=== PATIENT | female | born 1990 | race Caucasian/White ===

== ENCOUNTER 2023-08-07 08:24 | Emergency (ER) | payer MEDICAID, SELFPAY ==
--- NOTE | ~2023-08-07 | XR_ITS ---
EXAMINATION: XR KNEE, RIGHT CLINICAL INFORMATION: Knee pain COMPARISON: None available. TECHNIQUE: Four views of the right knee. FINDINGS: No fracture, dislocation or destructive lesion or joint effusion. XR/XR knee RT 4V IMPRESSION: Unremarkable study.
[2023-08-07 08:32] VITALS: BP 110/68; RESP 18; TEMP 36.7; O2SAT 98; BMI 22.8
--- NOTE | 2023-08-07 08:35 | ED_ITS ---
HPI - General Adult General Chief complaint: Extremity Injury, Lower Stated complaint: Right knee pain Time Seen by Provider: 08/07/23 08:34 Source: patient Mode of arrival: ambulatory Limitations: no limitations History of Present Illness HPI narrative: Patient is a 33 year old assigned female at with no reported medical history presenting to the emergency department today with right knee pain. Patient states that the other day she stepped out of her work van and felt / heard a pop in the right knee. Patient denies any head strike or loss of consciousness, dizziness, lightheadedness, abdominal pain, nausea, vomiting, fever, chills, blurry vision, double vision, loss of vision, chest pain, difficulty breathing, shortness of breath, back pain, night sweats, pain with urination, increased urinary frequency, increased urinary urgency, blood in her urine or stool, syncope or a near syncopal episode, recent trauma or falls, bowel incontinence, bladder incontinence, bowel retention, bladder retention, or any other complaints at this time. Onset (ago): day(s) Location: right and lower extremity Radiation: non-radiation Severity: mild Severity scale (1-10): 3 Quality: aching and dull Pain Consistency: constant Relieving factors: none Exacerbating factors: none Associated symptoms: denies other symptoms Treatments prior to arrival: none Related Data Allergies Allergy/AdvReac Type Severity Reaction Status Date / Time Sulfa (Sulfonamide Allergy Difficulty Verified 08/07/23 08:38 Antibiotics) Breathing Review of Systems Constitutional: Constitutional: Reports no additional constitutional complaints, Denies chills, Denies fever(s) and Denies night sweats Eyes: Eyes: Reports no additional eye complaints, Denies blurry vision, Denies change in vision, Denies diplopia, Denies eye discharge, Denies loss of vision and Denies eye pain ENT: Denies dizziness Cardiovascular: Cardiovascular: Reports no additional cardiovascular complaints, Denies chest pain, Denies lightheadedness, Denies Loss of Consciousness and Denies dyspnea Respiratory: Respiratory: Reports no additional respiratory complaints and Denies dyspnea Gastrointestinal: Gastrointestinal: Reports no additional gastrointestinal complaints, Denies abdominal pain, Denies melena, Denies hematochezia, Denies change in bowel habits and Denies change in stool character Genitourinary: Genitourinary: Denies hematuria, Denies urinary frequency, Denies dysuria, Denies urinary incontinence, Denies urinary hesitancy and Denies urinary urgency Musculoskeletal: Musculoskeletal: Reports no additional musculoskeletal complaints, Denies numbness and Denies tingling Comments: right knee pain Neurologic: Denies dizziness, Denies loss of vision, Denies numbness and Denie s tingling Psychiatric: Psychiatric: Reports no additional psychiatric complaints Endocrine: Endocrine: Reports no additional endocrine complaints Hematologic/Lymphatic: Hematologic/Lymphatic: Reports no additional hematologic/lymphatic complaints Allergic/Immunologic: Allergic/Immunologic: Reports no additional allergic/immunologic complaints [facility] Past Medical History Attestation statement: The following information was validated with the patient. Source: old records reviewed and nursing notes reviewed Social History Social History Advance Directives: No Advance Directives Information Provided: No Physical Exam ED Vital Signs: Vital Signs - 24 hr 08/07/23 08:32 Temperature 98.1 F Respiratory Rate 18 Blood Pressure 110/68 Pulse Oximetry 98 Oxygen Delivery Method Room Air BMI result Body Mass Index 22.8 Const General: cooperative, no acute distress, alert and awake Nutritional Appearance: well nourished Orientation/consciousness: patient oriented x3 Limitations: no limitations HENMT Head: Yes normal to inspection and Yes atraumatic Ears: hearing grossly normal bilaterally and external ears normal General nose exam: Normal external nose present, no nasal discharge noted and no epistaxis Face and sinus: Yes normal facial exam, No abrasion and No laceration Mouth: Normal oral and palatal mucosa present, no drooling and no muffled voice Eyes General: appearance normal, both eyes and all related structures Periorbital: periorbital findings normal Eyelids: Yes eyelids normal Conjunctivae: conjunctivae normal Pupils: Equal, round and reactive pupils present EOM: EOMs intact bilaterally Neck Neck: Yes normal visual inspection, Yes full ROM and Yes no lymphadenopathy Chest Chest palpation & inspection: normal inspection of the chest Resp Effort & Inspection: normal respiratory effort and able to speak in complete sentences GI Inspection: Yes normal to inspection Neuro General: patient oriented x3 and moves all extremities Cranial nerves: Yes Equal, round and reactive pupils present Cognition (Neuro): normal cognition Motor exam (neuro): 5/5 motor strength present throughout Sensory Exam: Normal double simultaneous stimulation for sensation Coordination: oojifm-mt-crvw test normal Extrem General: Yes normal to inspection, Yes full ROM and Yes capillary refill normal Psych Appearance: grossly normal Mental Status: mental status grossly normal Affect: normal affect Attitude: cooperative Thought process: Normal thought process present Thought content: Normal thought content present Insight: Good insight present (Psych) Procedures Orthopedic Splinting/Casting Injury #1: Side: right Lower Extremity Immobilizer: knee immobilizer Other Orthopedic Equipment: crutches Medical Decision Making Medical Decision Making MDM Narrative: Patient is a 33 year old assigned female at with no reported medical history presenting to the emergency department today with right knee pain. Patient's physical exam was unremarkable. Patient's right knee x-ray showed no acute process. I explained my physical exam findings as well as all test results to the patient. I answered all questions asked by the patient. Patient's right knee was placed in a knee immobilizer and given crutches with crutch instructions. Patient's PMS was intact prior to and after immobilizer placement. I stressed the importance of the patient taking her medication as prescribed. I stressed the importance of the patient following up with her primary care provider. I stressed the importance of the patient returning to the emergency department immediately if her symptoms were to worsen or if she were to develop any dizziness, shortness of breath, difficulty breathing, chest pain, blurry vision, loss of vision, nausea, vomiting, abdominal pain, fever, chills, back pain, or any other complaints. Patient verbalized agreement and understanding with this treatment plan and discharge. Differential Diagnosis Differential Diagnoses: The differential diagnosis associated with the presentation includes Right knee sprain Right knee pain Right knee injury Independent Interpretation I performed an independent interpretation of an: Plain X-Ray Interpretation: My interpretation is in agreement with the radiologist's impression of this imaging study. EXAMINATION: XR KNEE, RIGHT CLINICAL INFORMATION: Knee pain COMPARISON: None available. TECHNIQUE: Four views of the right knee. FINDINGS: No fracture, dislocation or destructive lesion or joint effusion. XR/XR knee RT 4V IMPRESSION: Unremarkable study. Dictated By: Ryan Pascual MD Signed By: Electronically signed by Ryan Pascual MD 08/07/23 1008 Radiology Impression Discussion of test interpretation with radiology: I have reviewed the radiologist's reading. Discharge Plan Discharge Clinical Impression: Knee sprain Patient Disposition: Home, Self-Care Instructions: Knee Sprain (DC), Crutch Instructions (ED) Additional Instructions: Given this was a work place injury, you should follow up with [facility]. Follow up with your primary care provider and an orthopedic provider. Return to the emergency department immediately if your symptoms worsen or if you develop any dizziness, shortness of breath, difficulty breathing, chest pain, blurry vision, loss of vision, nausea, vomiting, abdominal pain, fever, chills, back pain, or any other complaints. Referrals: [facility] [Provider Group] (Call to establish and follow up with an orthopedic provider.) [facility] [Provider Group] (Given this was a work place injury, you should follow up with [facility].) Lidia Barlow MD [Primary Care Provider] - Stand Alone Forms: Work/School Release Interventions: ED Discharge Assessment Last Done: 08/07/23 10:22 Discharge Date/Time: 08/07/23 10:57 Print Language: Occitan
--- NOTE | 2023-08-07 08:43 | PC.NURSE ---
Patient reports works for [employer] and two days ago jumped out of work vehicle and heard a pop in her right knee. Patient reports she continued to work and then worked yesterday. Reports pain has gotten worse, is able to bear weight but is having difficulty bending leg and going upstairs is painful. Reports swelling was worse 2 days ago
--- NOTE | 2023-08-07 10:27 | PC.NURSE ---
Discharge plan reviewed with patient who verbalized understanding, patient declining crutches, only wanted immobilizer placed.
== END 2023-08-07 10:57 | disposition home or self-care (01) ==
PROVIDERS: Emergency Provider Emergency Medicine Emergency Medical Services; PCP Family Medicine
DX: S83.91XA Sprain of unspecified site of right knee, initial encounter (principal); M25.561 Pain in right knee; X58.XXXA Exposure to other specified factors, initial encounter; Y93.9 Activity, unspecified; Y92.9 Unspecified place or not applicable; Y99.0 Civilian activity done for income or pay
CPT/HCPCS: 29505; 73564; 99283; 99284

== ENCOUNTER 2023-08-30 11:01 | Outpatient (AMB) | payer MEDICAID, SELFPAY ==
--- NOTE | 2023-08-30 11:09 | A.OFFVIS_ITS ---
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 Patient reports that she stepped out of her work van and felt/heard a pop. She presented to [facility] ED on 08/07/23 where xrays were taken and placed in a knee immobilizer. soreness and cramping limited ROM lockign straight. Currently she feels a pulling sensation in her leg and intermittent swelling. Finds some relief with edward wrap and icy hot. intermitted swelling. She takes Tylenol with little relief, states unable to take ibuprofen due to making her sick. Hx of left knee pain due to a previous injury. Allergies Sulfa (Sulfonamide Antibiotics) Allergy (Verified 08/07/23 08:38) Difficulty Breathing sulfamethoxazole [From Bactrim] Allergy (Verified 08/30/23 11:13) Anaphylaxis trimethoprim [From Bactrim] Allergy (Verified 08/30/23 11:13) Anaphylaxis Medication List - Last Reconciled 08/30/23 by MIAH Cabral norgest/e.estradiol-e.estrad 0.15 mg-30 mcg (84)/10 mcg (7) (Simpesse) PO HPI Clinical Program Coordinator- right Knee sprain HPI Details 33-year-old female who presents to the o ice today for evaluation of right knee injury s/p stepping out of work van when she heard a pop in her knee, 08/05/23. She was seen at ED 2 days later where x-rays were performed and she was placed in a knee immobilizer. She states she has pain, soreness, cramping, limited ROM and intermittent swelling in her knee. She also c/o a pulling sensation in her leg and reports her knee constantly pops. Her knee bends inward with ambulation. She finds mild relief with edward wrap, icy hot and Tylenol. She is unable to take Tylenol as experiences she sick due to it. 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 Review of Systems Const All systems reviewed & are unremarkable except as noted in HPI and below Physical Exam Vital Signs: BMI result Body Mass Index 22.8 Const General: cooperative, healthy appearing, comfortable, no acute distress, well developed and alert Orientation/consciousness: patient oriented x3 HEENT Head: Yes normal to inspection, Yes normocephalic and Yes atraumatic Eyes General: appearance normal, both eyes and all related structures Resp Effort & Inspection: normal respiratory effort and able to speak in complete sentences Cardio Rate: regular rate Peripheral pulses: Peripheral pulses 2+ throughout GI Palpation (GI): Soft to palpation Skin Lesions: no lesions Rashes: no rashes Neuro General: patient oriented x3 Extrem Other: Right knee: Skin intact, no erythema or joint effusion. Tenderness along the medial and lateral joint line. Full ROM with crepitus. Positive Jermaine?s. No ligamentous laxity. NVI. Results Reviewed Results Reviewed: xrays of the right knee obtained in the ED are negative for acute fracture or dislocation Assessment & Plan Assessment & Plan (1) Internal derangement of right knee: Code(s): M23.91 - Unspecified internal derangement of right knee Plan She was fit for a Genumed knee brace in the office today. An MRI of her right knee has also been ordered to further evaluate the integrity of meniscus. She will see me back once the scan is complete. Orders: Orders MR knee RT wo con Today M23.91 - Unspecified internal derangement of right knee Patient Instructions: Scribed for Kristian Angela PA-C, by Yvon Dodd medical office professional instructor, on 08/30/2023 at 11:00 AM EST. I, Kristian Angela PA-C, have personally reviewed and agree with the information entered by the scribe. Coding Level of Care Code New Pt Level 3 (27004) Diagnoses Internal derangement of right knee M23.91
[2023-08-30 11:14] VITALS: BMI 22.8
== END 2023-08-30 11:31 | disposition home or self-care (01) ==
PROVIDERS: PCP Family Medicine; Visit Provider Physician Assistant
DX: M23.91 Unspecified internal derangement of right knee (principal); Y99.0 Civilian activity done for income or pay; Z04.2 Encounter for examination and observation following work accident
CPT/HCPCS: 99203

== ENCOUNTER → 2023-08-30 11:01 | Outpatient (BNVA) | payer MEDICAID, SELFPAY | PROVIDERS: PCP Family Medicine; Visit Provider Physician Assistant | DX: M23.91 Unspecified internal derangement of right knee (principal) | CPT/HCPCS: 99202 ==

== ENCOUNTER 2023-09-13 15:40 | Outpatient (REF) | payer MEDICAID, SELFPAY ==
[2023-09-13 18:51] LABS: Influenza A PCR NEGATIVE (Negative); Influenza B PCR NEGATIVE (Negative); Resp Syncy Virus RNA Qual PCR NEGATIVE (Negative); SARS COV2 PCR INHOUSE NEGATIVE (Negative)
[2023-09-14 05:37] LABS: CT PCR NOT DETECTED (Not Detect.); NG PCR NOT DETECTED (Not Detect.)
== END 2023-09-13 15:41 | disposition home or self-care (01) ==
LOC: HO.CHCLNP 15:40
PROVIDERS: Visit Provider Family Medicine
DX: Z11.52 Encounter for screening for COVID-19 (principal); Z20.822 Contact with and (suspected) exposure to COVID-19; R42 Dizziness and giddiness; Z20.2 Contact with and (suspected) exposure to infections with a predominantly sexual mode of transmission
CPT/HCPCS: 0241U; 0353U

== ENCOUNTER 2023-10-10 19:32 | Outpatient (REF) | payer MEDICAID, SELFPAY ==
--- NOTE | ~2023-10-10 | MR_ITS ---
EXAMINATION: MR KNEE WITHOUT CONTRAST, RIGHT CLINICAL INFORMATION: Internal derangement. COMPARISON: 08/07/2023 TECHNIQUE: MRI of the knee without contrast was performed using routine sequences on a high-field scanner. FINDINGS: MENISCI: Medial Meniscus: Intact Lateral Meniscus: Intact LIGAMENTS: Cruciate: Intact Collateral: Intact EXTENSOR MECHANISM: Quadriceps and patellar tendons are intact. No tears. Retinacula are normal. There is edema signal underlying iliotibial band at the level of the lateral femoral epicondyle. ARTICULAR CARTILAGE/BONE: Patellofemoral Compartment: Normal. Articular cartilage appears well preserved. Normal trochlear morphology. TT-TG distance measures 1 cm. Medial Compartment: Normal. Lateral Compartment: Normal. JOINT FLUID AND BURSAE: No joint effusion or bursitis. MR/MR knee RT wo con IMPRESSION: 1. Edema signal underlying the iliotibial band at the level of the lateral femoral epicondyle as can be seen with iliotibial band friction syndrome. 2. Intact ligaments and menisci. No osteochondral injuries.
== END 2023-10-10 19:33 | disposition home or self-care (01) ==
LOC: HO.MRI 19:32
PROVIDERS: PCP Family Medicine; Visit Provider Physician Assistant
DX: M23.91 Unspecified internal derangement of right knee (principal)
CPT/HCPCS: 73721

== ENCOUNTER 2023-11-20 14:02 | Outpatient (AMB) | payer MEDICAID, SELFPAY ==
--- NOTE | 2023-11-20 13:57 | A.OFFVIS_ITS ---
Intake Intake Visit Reasons: TEL-Right knee MRI review Allergies Sulfa (Sulfonamide Antibiotics) Allergy (Verified 08/07/23 08:38) Difficulty Breathing sulfamethoxazole [From Bactrim] Allergy (Verified 08/30/23 11:13) Anaphylaxis trimethoprim [From Bactrim] Allergy (Verified 08/30/23 11:13) Anaphylaxis HPI TEL-Right knee MRI review HPI Details 33 yo female MRI review Right knee She states over the last several weeks her knee pain has increased since she has been attempting to increase her activity. She has been working and also goes to the gym and that is when she notices her pain worsening and limitng her daily activities. PFSH Surgical History (Updated 08/30/23 @ 11:12 by MARCELA Monson) Hx of breast augmentation Social History (Updated 08/30/23 @ 11:12 by MARCELA Monson) Patient Tobacco Use Status: Current everyday Tobacco user Current occupation: [employer] Review of Systems Const All systems reviewed & are unremarkable except as noted in HPI and below Physical Exam Resp Effort & Inspection: normal respiratory effort and able to speak in complete sentences Results Reviewed Results Reviewed: MR knee RT wo con 10/10/23 IMPRESSION: 1. Edema signal underlying the iliotibial band at the level of the lateral femoral epicondyle as can be seen with iliotibial band friction syndrome. 2. Intact ligaments and menisci. No osteochondral injuries. Assessment & Plan Assessment & Plan (1) Iliotibial band syndrome, right leg: Code(s): M76.31 - Iliotibial band syndrome, right leg (2) Internal derangement of right knee: Code(s): M23.91 - Unspecified internal derangement of right knee Plan We discussed options which include PT, NSAIDs and injections. The patient will defer on the injection today and proceed with PT and NSAIDs. If symptoms persist, the patient will contact me for an injection, otherwise, PRN. Orders: Orders PT Evaluation and Treatment Today M76.31 - Iliotibial band syndrome, right leg Patient Instructions: Scribed for Kristian Angela PA-C, by Yvon Dodd hospital medical biller, on 11/20/2023 at 2:45 PM EST. IKristian PA-C, have personally reviewed and agree with the information entered by the scribe. Coding Level of Care Code Tele Est Pt Level 3 (90123) Diagnoses Iliotibial band syndrome, right leg M76.31 Internal derangement of right knee M23.91
== END 2023-11-20 14:05 | disposition home or self-care (01) ==
LOC: HO.HOS 14:02
PROVIDERS: PCP Family Medicine; Visit Provider Physician Assistant
DX: M76.31 Iliotibial band syndrome, right leg (principal); M23.91 Unspecified internal derangement of right knee
CPT/HCPCS: 99213

== ENCOUNTER → 2023-11-20 14:02 | Outpatient (BNVA) | payer MEDICAID, SELFPAY | PROVIDERS: PCP Family Medicine; Visit Provider Physician Assistant | DX: M76.31 Iliotibial band syndrome, right leg (principal) ==

== ENCOUNTER 2023-12-16 11:00 | Outpatient (RCR) | payer MEDICAID, SELFPAY | END 2024-02-10 07:58 | disposition home or self-care (01) | LOC: HO.PT 11:00 | PROVIDERS: PCP Family Medicine; Visit Provider Physician Assistant | DX: M76.31 Iliotibial band syndrome, right leg (principal) | CPT/HCPCS: 97110; 97161 ==

== ENCOUNTER 2024-01-30 11:35 | Outpatient (REF) | payer MEDICAID, SELFPAY ==
[2024-01-30 14:50] LABS: MANUAL DIFF FLAG NO
[2024-01-30 14:55] LABS: Basophils Percent Auto 0.4 % (0-2); Eosinophils Absolute Auto 0.1 X10*3/uL (0.0-0.4); Eosinophils Percent Auto 2.6 % (0-4); Hematocrit 37.7 % (37.0-47.0); Hemoglobin 12.5 g/dl (12.0-16.0); Imm Gran Abs Auto 0.01 X10*3/uL (0.00-0.03); Imm Gran Pct Auto 0.2 % (0.0-0.4); Lymphocytes Absolute Auto 1.9 X10*3/uL (1.2-4.9); Lymphocytes Percent Auto 35.9 % (20-40); Mean Corpuscular HGB Conc 33.2 g/dl (31.0-35.0); Mean Corpuscular Hemoglobin 30.1 pg (27.0-33.0); Mean Corpuscular Volume 90.8 fL (80.0-98.0); Mean Platelet Volume 10.9 fL (9.4-12.3); Monocytes Absolute Auto 0.3 X10*3/uL (0.1-1.2); Neutrophils Absolute Auto 2.9 x10*3/uL (2.0-8.3); Neutrophils Percent Auto 54.9 % (45-73); Platelet Count 265 X10*3/uL (160-400); Red Blood Count 4.15 X10*6/uL (4.20-5.50); Red Cell Distribution Width 12.5 % (11.0-16.0); White Blood Count 5.3 X10*3/uL (4.8-10.8)
[2024-01-30 15:36] LABS: Alanine Aminotransferase 21 U/L (0-31); Alkaline Phosphatase 61 U/L (39-117); Anion Gap 13 (12-20); Aspartate Amino Transferase 19 U/L (5-31); Bilirubin Total 0.2 mg/dL (0.0-1.0); Blood Urea Nitrogen 9 mg/dL (9-16); Calcium 9.1 mg/dL (8.4-10.2); Carbon Dioxide 25 mmol/L (22-29); Chloride 108 mmol/L (96-108); Estimated Glomerular Filt Rate > 60; Glucose Random 86 mg/dL (60-115); Iron 107 mcg/dL (30-160); Percent Iron Saturation 35 % (15-50); Potassium 3.9 mmol/L (3.3-5.1); Sodium 142 mmol/L (135-145); Total Iron Binding Capacity 306 mcg/dL (228-428); Total Protein 6.8 g/dL (6.5-8.0); Unsaturated Iron Binding 199 ug/dL
[2024-01-30 15:40] LABS: Ferritin 38 ng/mL (10-122); TSH reflex Free T4 1.52 uIU/mL (0.32-4.0); Vitamin D 25-OH Total 25.2 ng/mL (>30)
[2024-01-31 03:44] LABS: Syphilis Screen Nonreactive (Nonreactive)
[2024-01-31 04:12] LABS: HIV AB/AG Nonreactive (Nonreactive); HIV Num 1 0.06 S/CO (0.00-0.99); ~HepC Num1 0.07 S/CO (0.00-0.79); ~Hepatitis C Antibody Nonreactive (Nonreactive)
== END 2024-01-30 11:36 | disposition home or self-care (01) ==
LOC: HO.CHCLDS 11:35
PROVIDERS: Visit Provider Family Medicine
DX: R42 Dizziness and giddiness (principal); Z13.9 Encounter for screening, unspecified; L65.9 Nonscarring hair loss, unspecified
CPT/HCPCS: 36415; 80053; 82306; 82728; 83540; 84443; 85025; 86780; 86803; 87389

== ENCOUNTER 2024-02-11 14:34 | Outpatient (REF) | payer MEDICAID, SELFPAY ==
[2024-02-19 22:47] LABS: HPV mRNA E6/E7 rflx Not Detected (Not Detected)
== END 2024-02-11 14:35 | disposition home or self-care (01) ==
LOC: HO.LNP 14:34
PROVIDERS: Visit Provider Family Medicine
DX: Z01.419 Encounter for gynecological examination (general) (routine) without abnormal findings (principal)
CPT/HCPCS: 87624; 88142

== ENCOUNTER 2024-03-30 13:50 | Outpatient (REF) | payer MEDICAID, SELFPAY ==
--- NOTE | ~2024-03-30 | XR_ITS ---
EXAMINATION: XR FOOT, LEFT CLINICAL INFORMATION: Left ankle sprain and fall COMPARISON: None available. TECHNIQUE: AP, lateral, and oblique views of the left foot. FINDINGS: The bones and soft tissues are normal. No fracture. Alignment is anatomic. Joint spaces are maintained. XR/XR foot LT min 3V IMPRESSION: Normal left foot.
== END 2024-03-30 13:51 | disposition home or self-care (01) ==
LOC: HO.HHCX 13:50
PROVIDERS: Visit Provider Internal Medicine
DX: S93.492A Sprain of other ligament of left ankle, initial encounter (principal); X58.XXXA Exposure to other specified factors, initial encounter; Y93.9 Activity, unspecified; Y92.9 Unspecified place or not applicable; Y99.9 Unspecified external cause status
CPT/HCPCS: 73630

== ENCOUNTER 2024-07-23 14:06 | Outpatient (REF) | payer MEDICAID, SELFPAY ==
--- NOTE | ~2024-07-23 | XR_ITS ---
EXAMINATION: XR KNEE, LEFT CLINICAL INFORMATION: Knee pain COMPARISON: None available. TECHNIQUE: Four views of the left knee. FINDINGS: Joint spaces do appear preserved. No fracture, dislocation or destructive process or joint effusion. XR/XR knee LT 3V IMPRESSION: Negative Electronically signed by: Ryan Pascual MD 07/23/2024 04:58 PM EDT
== END 2024-07-23 14:07 | disposition home or self-care (01) ==
LOC: HO.HHCX 14:06
PROVIDERS: Visit Provider Student in an Organized Health Care Education/Training Program
DX: M25.562 Pain in left knee (principal)
CPT/HCPCS: 73562

== ENCOUNTER 2024-08-16 22:32 | Emergency (ER) | payer MEDICAID, SELFPAY ==
--- NOTE | ~2024-08-16 | XR_ITS ---
EXAMINATION: XR FOOT, RIGHT CLINICAL INFORMATION: Right foot pain following a fall. COMPARISON: None available. TECHNIQUE: AP, lateral, and oblique views of the right foot. FINDINGS: The bones and soft tissues are normal. No fracture. Alignment is anatomic. Joint spaces are maintained. XR/XR foot RT min 3V IMPRESSION: Unremarkable examination. Electronically signed by: Yasmani Bui MD 08/16/2024 11:27 PM [facility]
[2024-08-16 22:37] VITALS: BP 107/61; PULSE 94; RESP 16; TEMP 36.6; O2SAT 99; BMI 27.1
--- NOTE | 2024-08-16 23:10 | ED_ITS ---
HPI - General Adult General Chief complaint: Extremity Injury, Lower Stated complaint: Rt Foot Injury Time Seen by Provider: 08/16/24 23:10 History of Present Illness ED Provider: Jennifer LANE narrative: The patient is a 34-year-old female. She says that she was worsening around with a friend at a store. She was wearing sandals on her feet. She accidentally kicked shopping cart with the top of her right foot. It was very painful and she has been unable to weight bear since. No other injuries. She indicates that the pain is primarily on the dorsum of the midfoot. Related Data Home Medications ?Medication ?Instructions ?Recorded ?Confirmed L norgest/E estradiol-E estrad PO 08/30/23 08/30/23 0.15 mg-30 mcg (84)/10 mcg(7) tabs,3mos (Simpesse) Allergies Allergy/AdvReac Type Severity Reaction Status Date / Time ibuprofen Allergy Vomiting Verified 08/17/24 00:08 Opioids - Morphine Analogues Allergy Vomiting Verified 08/17/24 00:08 Sulfa (Sulfonamide Allergy Difficulty Verified 08/16/24 22:38 Antibiotics) Breathing sulfamethoxazole Allergy Anaphylaxis Verified 08/16/24 22:38 [From Bactrim] trimethoprim [From Bactrim] Allergy Anaphylaxis Verified 08/16/24 22:38 Review of Systems Review of Systems: Yes all other systems are reviewed and are negative [facility] Past Medical History Surgical History (Updated 08/30/23 @ 11:12 by MARCELA Monson) Hx of breast augmentation Social History Social History (Updated 08/30/23 @ 11:12 by MARCELA Monson) Unable to assess alcohol history related to: Unknown Patient Tobacco Use Status: Current everyday Tobacco user Smoked in Last 30 Days: Yes Use of substances other than those prescribed or required for medical reasons: Unknown Advance Directives: No Advance Directives Information Provided: No Patient : No Current occupation: [employer] Physical Exam ED Vital Signs: Vital Signs - 24 hr 08/16/24 22:37 08/17/24 00:30 Temperature 97.8 F 98.0 F Pulse Rate 94 87 Respiratory Rate 16 16 Blood Pressure 107/61 112/68 Pulse Oximetry 99 99 Oxygen Delivery Method Room Air Room Air BMI result Body Mass Index 27.1 Const Other: The patient is awake, alert, pleasant, cooperative. She does not appear in obvious distress. HENND Other: Appearance of the face is unremarkable. No signs of injury. Eyes General: appearance normal, both eyes and all related structures Neck Neck: Yes full ROM Resp Effort & Inspection: normal respiratory effort Skin Other: The skin of the right foot is intact. No significant soft tissue swelling or discoloration. Neuro Other: The patient has intact sensation in the toes Extrem Other: The patient is quite tender in the dorsal right midfoot. No significant malleolar tenderness. She has a lot of pain on the dorsum of the foot when she attempts to move the foot however. First no gross deformity. No apparent bruising or significant soft tissue swelling. Medications Administered Discontinued Medications Generic Name Dose Route Start Last Admin Trade Name Zionq PRN Reason Stop Dose Admin Acetaminophen 975 mg 08/16/24 23:34 08/17/24 00:08 Acetaminophen 325 Mg Tablet PO 08/16/24 23:35 975 mg ONCE ONE Administration Ibuprofen 400 mg 08/16/24 23:34 08/17/24 00:09 Ibuprofen 400 Mg Tablet PO 08/16/24 23:35 Not Given ONCE ONE Medical Decision Making Medical Decision Making [facility] Narrative: The patient presents for evaluation of acute foot pain after accidentally kicking a shopping cart with the dorsum of her right foot. She says she can not bear weight on the foot because of pain. There is no gross deformity or bruising. The malleoli are not significantly tender. An x-ray of the right foot shows no fracture. I suspect this is a bruise. She will be given crutches and a postop shoe and advised to keep the foot elevated for the next few days. Discharge Plan Discharge Clinical Impression: Contusion of right foot Patient Disposition: Home, Self-Care Instructions: Foot Contusion (ED) Additional Instructions: Your x-ray shows that you do not seem to have sustained a fracture from the injury. I believe you have a bad bruise to the foot. Please use the crutches provided to keep weight off the foot. Use the shoe provided if it is helpful in getting around. I would recommend resting and taking it easy for the next several days to allow the foot to heal. As much as you can you should keep the foot elevated when you are sitting. Use ibuprofen and acetaminophen as needed for discomfort. Follow up with your regular doctor if you were not getting better in the next few days. Return to the emergency room if significantly worse. Prescriptions: No Action L norgest/e.estradiol-e.estrad [Simpesse] 0.15 mg-30 mcg (84)/10 mcg (7) tablets,dose pack,3 month PO Referrals: Lidia Barlow MD [Primary Care Provider] - (Right foot contusion) Interventions: ED Discharge Assessment Last Done: 08/17/24 00:30 Discharge Date/Time: 08/17/24 00:39 Print Language: Korean
[2024-08-17] MEDS: Acetaminophen 325 MG TABLET 975 MG PO (00:08)
[2024-08-17 00:30] VITALS: BP 112/68; PULSE 87; RESP 16; TEMP 36.7; O2SAT 99
== END 2024-08-17 00:39 | disposition home or self-care (01) ==
PROVIDERS: Emergency Provider Emergency Medicine; PCP Family Medicine
DX: S90.31XA Contusion of right foot, initial encounter (principal); M79.671 Pain in right foot; F17.210 Nicotine dependence, cigarettes, uncomplicated; Y29.XXXA Contact with blunt object, undetermined intent, initial encounter; Y93.89 Activity, other specified; Y92.89 Other specified places as the place of occurrence of the external cause; Y99.8 Other external cause status; Z79.899 Other long term (current) drug therapy
CPT/HCPCS: 73630; 99283; 99284

== ENCOUNTER 2024-10-07 18:13 | Outpatient (REF) | payer MEDICAID, SELFPAY ==
--- OUTSIDE RECORDS SUMMARY | 2024-10-07 19:13 | XMS_ITS | Continuity of Care Document ---
Author Organization Anand Esteves [facility] Address [address] [address],[address] [place] [address] Phone Care Team Providers Care Relationship Banker Name Role Phone Unavailable Unavailable Unavailable Medications [...] Date Provider Providers Copied on Encounter Anand [facility], [address] [place] [address],[address], [id number], tel:[phone] [facility] Encounter for dental exam and cleaning w/o abnormal findings 0 No Information maik [facility], [address] [place] [address],[facility] [address], [place], [id number], tel:[phone] [facility] Encounter for dental exam and cleaning w/o abnormal findings 0 Ron Garnett. [address] [place] [address], [id number], . tel:[phone] Anand Esteves [facility], [address] [place] [address],[address], [place], [id number], [place] tel:[phone] [facility] Absence of menstruationPr egnancy examination or test, positive result 2 Pastor Scott. [address] [facility], [place], [place], [id number], [place]. tel:[phone] Family History Family Member Type Diagnosis Age At Onset No Information Payers Payer name Insurance type Covered republican ID Billy christine(zara) [employer] [facility] CI [id number] [employer] [id number] Social History Type Description Quantity Date Captured [...]
== END 2024-10-07 18:14 | disposition home or self-care (01) ==
LOC: HO.HHCLNP 18:13
PROVIDERS: PCP Internal Medicine; Visit Provider Student in an Organized Health Care Education/Training Program
DX: Z20.828 Contact with and (suspected) exposure to other viral communicable diseases (principal)
CPT/HCPCS: 36415; 87255

== ENCOUNTER 2025-01-05 13:31 | Outpatient (REF) | payer MEDICAID, SELFPAY ==
--- NOTE | ~2025-01-05 | XR_ITS ---
EXAMINATION: XR KNEE, LEFT CLINICAL INFORMATION: PAIN COMPARISON: None available. TECHNIQUE: Four views of the left knee. FINDINGS: No fracture or joint effusion. Alignment is anatomic. Joint spaces are maintained. No abnormal soft tissue calcification. XR/XR knee LT 4V IMPRESSION: Normal left knee. Electronically signed by: Khurram Mckeon MD 01/05/2025 02:04 PM EDT
--- OUTSIDE RECORDS SUMMARY | 2025-01-05 16:35 | XMS_ITS | Clinical Summary ---
Author Organization [employer] Address [address] [facility] [address] [place] [address] Care Team Providers Care Child Attendant Name Role Phone Lidia Barlow MD Primary Care Provider [phone] Allergies Active Allergy Reactions Criticality Noted Date Comments Sulfamethoxazole-Trimethop rim Itching 03/12/2023 Oxycodone-Acetaminophen 02/02/2019 Other reaction(s): Vomiting Medications albuterol 108 (90 Base) MCG/ACT inhaler Inhale 2 puffs every 4 (four) hours if needed for wheezing. 18 g 2 3 Active Additional Information Patient not taking.Reported on 07/23/2024 SUMAtriptan (Imitrex) 25 MG tabletIndication s:Chronic migraine with aura without status migrainosus, not intractable Take 1 tablet (25 mg) by mouth 1 (one) time if needed for migraine. May repeat dose once in 2 hours if no relief. Do not exceed 2 doses in 24 hours. 9 tablet 5 4 Active hydrocortisone (Anusol-HC) 2.5 % rectal creamIndications :Hemorrhoids, unspecified hemorrhoid type Insert into the rectum 2 times daily. 28 g 4 Active Additional Information Patient not taking.Reported on 07/23/2024 cholecalciferol (Vitamin D-3) 50 MCG (1999 UT) capsule Take 1 capsule (50 mcg) by mouth Once per day. 120 capsule 3 4 Active amitriptyline (Elavil) 10 MG tabletIndication s:Chronic migraine with aura without status migrainosus, not intractable TAKE 2.5 TABLETS (25 MG) BY MOUTH AT BEDTIME. 90 tablet 1 4 Active naproxen (Naprosyn) 500 MG tablet TAKE 1 TABLET BY MOUTH TWICE A DAY 60 tablet 4 Active Additional Information Patient not taking.Reported on 07/23/2024 triamcinolone (Kenalog) 0.1 % ointmentIndicati ons:Irritant contact dermatitis due to other agents Apply topically 2 times daily. 15 g 4 Active diphenhydrAMINE (BENADryl) 25 MG tabletIndication s:Irritant contact dermatitis due to other agents Take 1 tablet (25 mg) by mouth if needed at bedtime for itching. 30 tablet 4 Active loratadine (Claritin) 10 MG tabletIndication s:Irritant contact dermatitis due to other agents TAKE 1 TABLET BY MOUTH EVERY DAY 90 tablet 4 Active lidocaine (Lidoderm) 5 % patchIndications :Left knee pain, unspecified chronicity Apply 1 patch topically Once per day. Remove & discard patch within 12 hours or as directed by MD. 30 patch 1 4 Active Diclofenac Sodium 1 % gelIndications:L eft knee pain, unspecified chronicity Apply 1 Application topically if needed each day (left knee). 50 g 4 Active bacitracin-polym yxin b (Polysporin) ointment Apply topically 2 times daily. 15 g 5 Active Simpesse 0.15-0.03 &0.01 MG tablet tablet TAKE 1 TABLET BY MOUTH EVERY DAY IN THE MORNING 91 tablet 3 5 Active meloxicam (Mobic) 7.5 MG tablet Take 1 tablet (7.5 mg) by mouth Once per day. 10 tablet 5 01/06/20 26 Active Active Problems Problem Noted Date Diagnosed Date Sprain of left ankle 04/01/2024 Assessment & Plan (04/01/2024 3:42 PM EDT): Use Naproxen bid Elevate feet at 30 degrees 2x per day, apply ice to affected ankle for at least 15min per day, Avoid weight bearing on affected leg for the next 2w (she said she didnt need an out of work letter). Compression, short air cast wrap done at today's visit, should keep it for at least 2w. Order Xray of ankle, refer to PT Cervical cancer screening 02/11/2024 Assessment & Plan (02/11/2024 10:43 AM EDT): 33 y.o. here for cervical cancer screening. Will continue monitoring following ASCCP guidelines. Chronic migraine with aura w ithout status migrainosus, not intractable 01/14/2024 Assessment & Plan (01/30/2024 5:04 PM EDT): Pt's migraines have increased in severity. Due to starting pt originally on a low dosage of Amitriptyline and not having any side effects other than somnolence, the pt agreed to an increase of dosage of Amitriptyline to 10 mg with a f/u in 2-3 months. The pt was also prescribed SUMAtriptan (Imitrex) 25 MG tablet to calm the migraine. Assessment & Plan (01/14/2024 11:47 AM EDT): I advise to avoid migraine triggers like red wine, chocolate, cheese, strong perfumes I will start her on amitriptyline 10mg at bed time Imitrex 25mg PRN RTC 2-4 weeks televisit UTI symptoms 01/14/2024 Assessment & Plan (01/14/2024 11:46 AM EDT): Drink plenty of water Do not hold the urine UA and culture patient to be contacted with results Routine screening for STI (sexually transmitted infection) 09/13/2023 Assessment & Plan (09/13/2023 10:50 AM EST): -Labs: HIV-1/2, Syphilis, Hep.C, Chlam/Gono,RNA. Alopecia 09/13/2023 Assessment & Plan (09/13/2023 10:54 AM EST): Patient will be referred to [facility] Derm Skin. -Labs: CBC, Comp. Metabolic Panel, Ferritin, Iron and total Iron, TSH/FT4, Vit.D,25. Episodic lightheadedness 09/13/2023 Assessment & Plan (09/13/2023 10:54 AM EST): -Labs: Comp. Metabolic Panel. History of breast augmentation 06/04/2022 1 Overview (07/08/2023): Last Assessment & Plan: Patient had 2 years ago. Reports surgeon stated she should have an MRI 2 years from surgical procedure. Recommended patient follow-up with specialist for repeat MRI Intractable migraine with aura without status mi grainosus 08/31/2020 07/08/2023 Rash 06/10/2020 07/08/2023 Overview (07/08/2023): Present on anterior knee to chinchilla/foot since approximately April 2020. Last Assessment & Plan: Most likely fungal infection, such as tinea corporis or versicolor. -Prescribed medication as noted below -Encouraged patient to continue supportive care measures she is already been doing, including keeping area clean and dry -Advised if rash does not resolve within 2 weeks to schedule in person follow-up appointment for further evaluation to rule out other possible conditions Nicotine dependence 02/02/2019 07/08/2023 Overview (07/08/2023): Last Assessment & Plan: Currently using 10 cigarettes/day with plan to cut down, not ready to quit yet. Counseling given, and patient made aware of resources available to help her succeed when she is ready to stop smoking. Assessment & Plan (07/24/2024 7:46 AM EDT): Advised pt to discuss about contraception , pt is active tobacco smoker and on Pr/E2 contraception , pt states will schedule f up apt w PCP for annual exam and to discuss this,encouraged pt to stop smoking Amenorrhea 01/22/2019 07/08/2023 Overview (07/08/2023): Last Assessment & Plan: test is negative. Discussed this could be hormone related and may be a few months before periods regulate again. Options for control seem to be paraguard IUD, condoms or have her get a vasectomy since she has had side effects to most hormone related products. For now she will use condoms but will think about getting an paraguard in the future. Left knee pain 01/08/2018 07/08/2023 Overview (10/14/2023): Last Assessment & Plan: Patient report L knee pain for the past 2 years. The pain started after her accidentally fell on top of her knee while playing with kids outside. X-ray was done and it was negative. She used knee brace for a while and took ibuprofen with ome relieve. But she continues to have pain occassionally specially when she spends long hours at work on her feet. Physical exam was non significant except for a mild tenderness on the lateral aspect of her L knee. Use ice/hot pad as tolerated streching ecericse Ibuprofen PRN RTC if no improvement or signs of worsening. We will consider PT Assessment & Plan (07/24/2024 7:47 AM EDT): -There is pain w palpation of her left knee w no deformities, no redness ,slight swelling ,no increase skin temp ,ROM decrease due to pain -left knee XR -use knee brace -soft ( that has at home ) -tylenol prn -diclofenac topical, lidoderm patches -states can not tolerate oral NSAIDS ( provokes nausea and vomit) -referred today to PT for acute on chronic knee pain -Alarm signs and symptoms discussed Depression 01/08/2018 07/08/2023 Overview (07/08/2023): Last Assessment & Plan: Patient present to the clinic today to establish care and reporting history of depression, bipolar disorder, and ADHD for which she was receiving pharmacological treatment in the past. She admits not really understanding all those diagnoses and treatment she was put on, because she stopped them 8 years ago and that she is been doing fine since. She denies any suicidal, or homicidal ideation. She did report some sadness related to the fact that she does not have her kids with her, they are under the food DCF care and she is being battling and going through court trying to get them back. She is a moderate of 4 kids, 3 and leaving and one due to meningitis according to mom. Patient was completely reasonable during this entire visit, and showed no signs of concerns in terms of behavioral health. However, patient did request psychological evaluation by 1 of our psychiatrist/psychologist, stating that the court is asking for it. I placed a referral to see 1 of our behavioral health specialist. Patient made aware of our behavioral health service and advised to call or to come in to the clinic, in case she needs any help Personal history of other specified conditions 0 11/25/2015 07/08/2023 Encounters Date Type Department Care Team Description 01/05/2025 1:40 PM EDT [facility] [address] [phone] Giovany Corea MD Acute pain of left knee (Primary Dx); Pain and swelling of left knee; Impaired mobility 01/05/2025 Telephone [facility] [address] [place] [phone] nAmol, MD Giovany Results 01/05/2025 Telephone [facility] [address] [place] [address] Lidia Barlow MD Nurse Triage 12/04/2024 Population Health Risk Score [facility] ([facility]) Department [address] [place] [phone] Provider, Population Health Generic 10/19/2024 Refill [facility] [address] [place] [address] Lidia Barlow MD 10/08/2024 Orders Only [facility] [address], [place] [phone] Yaw Hitchcock MD Herpes exposure (Primary Dx) 10/08/2024 Telephone [facility] [address] [place] [phone] Lidia Barlow MD Results 10/07/2024 2:40 PM EST Office Visit [facility] [address] [place] [phone] Bessy Garcia MD Blister of vagina with infection, initial encounter (Primary Dx) from Last 3 Months Family History Medical History Relation Name Comments Scoliosis Brother Meningitis Daughter Anxiety disorder Father Bipolar disorder Father Depression Father Breast cancer Maternal Grandmother Ovarian cancer Maternal Grandmother Anxiety disorder Mother Bipolar disorder Mother Colon cancer Paternal Grandmother Scoliosis Sister Relation Name Status Comments Brother Daughter Father Maternal Grandmother Mother Paternal Grandmother Sister Social History Tobacco Use Types Packs/Day Years Used Date Smoking Tobacco: Every Day Cigarettes Passive Smoke Exposure: Current Smokeless Tobacco: Never Tobacco Cessation:Ready to Q uit: Not Asked; Counseling Given: Not Answered Depression Answer Date Recorded Patient Health Questionnaire-9 Score 2 01/30/2024 Patient Health Questionnaire-9 Score 2 01/30/2024 Last PHQ-9: Questionnaire Data Not on file 0 01/30/2024 Housing Stability Answer Date Recorded What is your housing situation today? I have kevin matthews 07/08/[address] you li ve. Do you have problems with any of the following? None of the above 07/08/2023 Food Insecurity Answer Date Recorded Within the past 12 months, y ou worried that your food would run out before you got money to buy more: Never True 07/08/2023 Within the past 12 months,th e food you bought just didn't last and you didn't have enough money to get more: Never True Transportation Answer Date Recorded In the past 12 months, has l ack of transportation kept you from medical appts, meetings, work or from getting things needed for daily living? No 07/08/2023 Utilities Answer Date Recorded In the past 12 months, has t he [employer], gas, oil or water [employer] threatened to shut off services in your home? No 07/08/2023 Depression Answer Date Recorded Patient Health Questionnaire-2 Score 0 01/30/2024 Comments Unknown Sex and Gender Information Value Date Recorded Sex Assigned at Female 03/12/2023 10:44 AM EDT Legal Sex Female 10:39 AM EDT Gender Identity Female 03/12/2023 10:44 AM EDT Sexual Orientation Bisexual 09/13/2023 4: 37 PM EST Last Filed Vital Signs Vital Sign Reading Time Taken Comments Blood Pressure 120/79 01/05/2025 12:57 PM EDT Pulse 79 01/05/2025 12:57 PM EDT Temperature 36.8 ??C (98.2 ??F) 01/05/2025 12:57 PM E DT Respiratory Rate 17 01/05/2025 12:57 PM EDT Oxygen Saturation 97% 01/05/2025 12:57 PM EDT Inhaled Oxygen Concentration - - Weight 72.1 kg (159 lb) 10/07/2024 2:26 PM EST Height 165.1 cm (5' 5 ) 07/23/2024 11:12 AM EDT Body Mass Index 26.46 07/23/2024 11:12 AM EDT Plan of Treatment Health Maintenance Due Date Last Done Comments Dental Oral Exam 1991 Dental Prophylaxis 1991 Dental X-Ray: Full Mouth 1991 Lipid Panel 1991 Alcohol/Substance Use Screening 2003 Family Planning (PISQ) 2006 DTaP/Tdap/Td Vaccines (1 - Tdap) 2010 Hepatitis B Vaccines (1 of 3 - 19+ 3-dose series) 2010 Pneumococcal Vaccine: Pediatrics (0 to 5 Years) and At-Risk Patients (6 to 49) Years) (1 of 2 - PCV) 2010 Dental X-Ray: Bitewings 03/13/2024 03/12/2023 COVID-19 Vaccine ( - 2023-2 5 season) 2024 Influenza Vaccine (#1) 2024 SDOH Screening 06/25/2024 06/25/2023 Depression Screening 01/29/2025 01/30/2024, 01/30/2024 Tobacco Screening 07/23/2025 07/23/2024 Cervical Cancer Screening 02/10/2029 HPV/Cotest 02/10/2029 02/11/2024 Pap Smear 02/10/2029 02/11/2024 Zoster Vaccines (1 of 2) 2041 RSV Patients and Patients Aged 60 years or older (1 - 1-dose 75+ series) 2066 HIV Screening Completed 01/30/2024 Hepatitis C Screening Completed 01/30/2024 HIB Vaccines Aged Out No longer eligi ble based on patient's age to complete this topic HPV Vaccines Aged Out No longer eligi ble based on patient's age to complete this topic Hepatitis A Vaccines Aged Out No long er eligible based on patient's age to complete this topic IPV Vaccines Aged Out No longer eligi ble based on patient's age to complete this topic Meningococcal Vaccine Aged Out No josep kimberli eligible based on patient's age to complete this topic RSV under 20 months Aged Out No longe r eligible based on patient's age to complete this topic Rotavirus Vaccines Aged Out No longer eligible based on patient's age to complete this topic Procedures Procedure Name Priority Date/Time Associated Diagnosis Comments XR KNEE 4+ VIEWS LEFT Routine 01/05/2025 1:32 PM EDT Acute pain of left knee Pain and swelling of left knee HERPES CULTURE WITH REFLEX TYPING Routine 10/07/2024 2:00 PM EST Herpes exposure HPV MRNA E6/E7 REFLEX TO HPV 16, 18/45 Routine 02/11/2024 9:56 AM EDT Cervical cancer screening PAP SMEAR Routine 02/11/2024 9:56 AM EDT Cervical cancer screening HEPATITIS C AB W/REFL TO HCV RNA, QN, PCR Routine 01/30/2024 11:36 AM EDT Encounter for health-related screening HIV 1/2 ANTIGEN/ANTIBODY, FOURTH GENERATION W/RFL Routine 01/30/2024 11:36 AM EDT Encounter for health-related screening BITEWING - SINGLE RADIOGRAPHIC IMAGE Routine 03/12/2023 1:00 PM EDT Dental caries Dental abscess from Last 3 Months or Most Recently Relevant to Health Maintenance Results * XR Knee 4+ Views Left (01/05/2025 1:32 PM EDT) Anatomical Region Laterality Modality Lower Extremities, Knee Left [facility] 01/05/2025 1:32 PM EDT Narrative 01/05/2025 2:07 PM EDT ?[facility] [facility] ?[address] ?[place] [address] ?XRay Report ? Signed ? Patient: Delgado,Soco ?MR#: [id number] ?? 69 ? : 1990 ?Acct:[id number] ? Age/Sex: 34 / F ?ADM Date: 01/05/25 ? Loc: HO.HHCX ? Attending Dr: Giovany Corea MD ? Ordering Physician: Giovany Corea MD ?? Date of Service: 01/05/25 ?? Procedure(s): XR knee LT 4V ?? Accession Number(s): [id number] ? cc: Giovany Corea MD ? EXAMINATION: ?? XR KNEE, LEFT ? CLINICAL INFORMATION: ?? PAIN ? COMPARISON: ?? None available. ? TECHNIQUE: ?? Four views of the left knee. ? FINDINGS: ?? No fracture or joint effusion. Alignment is anatomic. Joint spaces are ?? maintained. No abnormal soft tissue calcification. ? XR/XR knee LT 4V ?? IMPRESSION: ?? Normal left knee. ? Electronically signed by: ??Khurram Mckeon MD ??01/05/2025 02:04 PM EDT RP ? Dictated By: ?Khurram Mckeon MD ? Signed By: ?<Electronically signed by Khurram Mckeon MD in OV> ?01/05/25 1404 ? DD/ 1332 ? TD/TT: 01/05/25 1358 ? Landscape Supervisor: ? Procedure Note Yasmany, Image - 01/05/2025 [place] [address] XRay Report Signed Patient: Soco DelgadoMR#: [id number] 69 : 1990Acct:[id number] Age/Sex: 34 / FADM Date: 01/05/25 Loc: HO.HHCX Attending Dr: Giovany Corea MD Ordering Physician: Giovany Corea MD Date of Service: 01/05/25 Procedure(s): XR knee LT 4V Accession Number(s): [id number] cc: Giovany Corea MD EXAMINATION: XR KNEE, LEFT CLINICAL INFORMATION: PAIN COMPARISON: None available. TECHNIQUE: Four views of the left knee. FINDINGS: No fracture or joint effusion. Alignment is anatomic. Joint spaces are maintained. No abnormal soft tissue calcification. XR/XR knee LT 4V IMPRESSION: Normal left knee. Electronically signed by: Khurram Mckeon MD 01/05/2025 02:04 PM EDT RP Dictated By: Khurram Mckeon MD Signed By: <Electronically signed by Khurram Mckeon MD in OV> 01/05/25 1404 DD/ 1332 TD/TT: 01/05/25 1358 Landscape Supervisor: us Giovany Corea MD IMG XR PROCEDURES Final Result * (ABNORMAL) Herpes Simplex Virus Culture with Reflex Typing (10/07/2024 2:00 PM EST) Pathologist [facility] HSV Culture/Type SEE NOTE(A) [facility] Comment:HERPES SIMPLEX VIRUS CULTURE W/RFL TO TYPING Micro Number: [id number] Test Status: Final Specimen Source: Not given Specimen Quality: Adequate HSV Culture: Isolated HSV TYPE 2: Isolated HSV TYPE 1: The incidence of HSV 1 infection in the presence of HSV 2 (dual infection) is extremely rare. Therefore, testing for HSV 1 was not performed.THIS TEST WAS PERFORMED AT:[facility] [address] [id number] MERATI,MD Swab (Vaginal Swab) 10/07/2024 2:00 PM EST 10/08/2024 12:34 PM EST us Yaw Quinn MD LAB MICROBIOLOGY - GENERAL ORDERABLES Final Result [facility] [address] [place] [address] [phone] * HPV mRNA E6/E7 w/Reflex to HPV Genotypes 16, 18/45 (02/11/2024 9:56 AM EDT) HPV nRNA E6/E7 Not Detected Not Detected [facility] Comment:Methodology: Transcr iption-Mediated AmplificationThis assay detects E6/E7 viral messenger RNA (mRNA) from 14high-risk HPV types (16,18,31,33,35,39,45,51,52,56,58,59,66,68).Cervical sources are required for HPV testing.If a vaginal source from a patient who has had atotal hysterectomy with removal of cervix wassubmitted, please contact the testing laboratoryfor alternative testing options.For additional information, please refer tohttp://education.[employer]/faq/LSM208q6(This link if provided for information/educational purposes only.)THIS TEST WAS PERFORMED AT:[facility] [place] [phone] RAPHAEL MD HPV mRNA E6/E7 [facility] HPV 16 RNA [facility] HPV 18/45 RNA [facility] Vaginal Fluid Cervix uteri structure / Unknown 02/11/2024 9:56 AM EDT 02/18/2024 7:46 AM EDT [facility] - 02/24/2024 6:03 AM EDT Collection Date: [id number] by: PAOLA Rowland: Cervix us Lidia Barlow MD LAB CYTOLOGY ORDERABLES Final Result [facility] [address] [place] [address] [phone] * Pap Smear (02/11/2024 9:56 AM EDT) Swab Cervical swab / Unknown 02/11/2024 9:56 AM EDT 02/12/2024 11:[address] EDT [facility] - 03/02/2024 4:43 PM EDT ----- ------- Name: Soco Delgado ? Age/Sex: 33/F ? : 1990 Unit#: [id number] ?? Attend Dr: Lidia Barlow MD ?Re02/11/24 ?Status: DEP REF ? Location: HO.LNP ?Disch: ? ----- ------- SPEC : [id number] ? RECD: 02/12/24-114 ? STATUS: ??SOUT ? REQ NUM: [id number] ? ANDRÉS: 02/11/24-0956 ? SUBM DR: Lidia Barlow MD ? ENTERED: ??02/12/24-1414 ?SP TYPE: Pap Smr ?OTHR : ? ORDERED: ??Pap Smear ? Interpretation ?? Satisfactory for evaluation. ?? Negative for intraepithelial lesion or malignancy. ? HPV mRNA E6/E7: ?NOT DETECTED ? This assay detects E6/E7 viral messenger RNA (mRNA) from 14 high-risk HPV types (16, 18, ?? 31, 33, 35, 39, 45, 51, 52, 56, 58, 59, 66, 68) ? HPV testing performed by [facility], [place], [place]. ??See reference laboratory ?? portion of the EMR for entire report. ?Clinical Information LMP:01/22/24 Previous PAP test:Unk ? Material Received ?? ThinPrep-Cervical ----- ------- Signed (signature on file) Neli Hebert Kun 03/02/24 0993 ? ----- ------- ? END OF REPORT ? us Lidia Barlow MD LAB CYTOLOGY ORDERABLES Final Result [facility] [address] [place] [phone] * Hepatitis C Antibody with Reflex to HCV, RNA, Quantitative, Real-Time PCR (01/30/2024 11:36 AM EDT) Hepatitis C Antibody Nonreactive Nonreactive [facility] Comment:Antibodies to HCV no t detected; does not exclude early acuteHCV infection. Blood Venous blood specimen / Unknown 01/30/2024 11:36 AM EDT 01/30/2024 2:39 PM EDT us Lidia Barlow MD LAB BLOOD ORDERABLES Final Re sult Performing Organization Address [facility] de Phone Number [facility] [address] [place] [phone] * HIV-1/2 Antigen and Antibodies, Fourth Generation, with Reflexes (01/30/2024 11:36 AM EDT) HIV AB/AG Nonreactive Nonreactive [facility] Comment:HIV-1 p24 Ag and/or HIV-1/HIV-2 Ab not detected.A test result that is nonreactive does not exclude thepossibility of exposure to or infection with HIV-1 and/orHIV-2. Nonreactive results in this assay for individualswith prior exposure to HIV-1 and/or HIV-2 may be due toantigen and antibody levels that are below the limit ofdetection of this assay.The [employer] HIV Ag/Ab Combo assay result andsupplemental assay results should be interpreted inconjunction with the patient's clinical presentation,history and other laboratory results. If the results areinconsistent with clinical evidence, additional testing issuggested to confirm the result. Blood Venous blood specimen / Unknown 01/30/2024 11:36 AM EDT 01/30/2024 2:39 PM EDT us Lidia Barlow MD LAB BLOOD ORDERABLES Final Re sult Performing Organization Address [facility] Phone Number [facility] [address] [place] [address] [phone] from Last 3 Months or Most Recently Relevant to Health Maintenance Insurance [place] [facility] MEDICAID STAND ADULT Care Teams Child Attendant Relationship Specialty Start Date End Date Lidia Barlow MD [address] [place] [phone] PCP - General Family Medicine 09/13/23
--- OUTSIDE RECORDS SUMMARY | 2025-01-05 16:35 | XMS_ITS | Clinical Summary ---
Author Organization [facility] Address [address] [place] [address] Care Team Providers Care Security System Installer Name Role Phone Luis Calixto Primary Care Provider [phone] Allergies Active Allergy Reactions Criticality Noted Date Comments Sulfamethoxazole-Trimethoprim Unknown 2016 Oxycodone-Acetaminophen Vomiting 02/02/2019 Sulfa (Sulfonamide Antibiotics) Rash,Angioedema High Medications * This document contains information received from the source organization and may not represent a complete record from that organization. albuterol (Ventolin HFA) 90 mcg inhaler Inhale 1 puff (90 mcg total) by mouth every 4 hours as needed for wheezing or shortness of breath. Use with spacer. 18 g 5 0 Active albuterol (PROAIR HFA,VENTOLIN HFA) 90 mcg inhaler Inhale 2 puffs (180 mcg total) by mouth every 4 hours as needed for wheezing or shortness of breath. Use with spacer. 6.7 g 1 Active meloxicam (MOBIC) 15 mg tablet Take 1 tablet (15 mg total) by mouth once a day. 60 tablet 5 1 Active cyclobenzaprine (FLEXERIL) 10 mg tabletIndications: Back muscle spasm Take 1 tablet (10 mg total) by mouth 2 times a day as needed for muscle spasms. 60 tablet 1 2 Active L norgest/e.estradio L-e.estrad (Simpesse) 0.15 mg-30 mcg (84)/10 mcg (7) tablets,dose pack,3 monthIndications:E ncounter for surveillance of contraceptive pills TAKE 1 EACH BY MOUTH ONCE A DAY. 91 each 11 3 Active Active Problems Problem Noted Date Diagnosed Date History of breast augmentation 06/04/2022 Assessment & Plan (06/04/2022 12:16 PM EDT): Patient had 2 years ago. Reports surgeon stated she should have an MRI 2 years from surgical procedure. Recommended patient follow-up with specialist for repeat MRI Encounter for laboratory testing for COVID-19 vi ganesh 11/21/2020 Assessment & Plan (11/21/2020 4:09 PM EST): Inform patient to visit [facility] testing tent for traveling. The patient will need to bring a valid photo ID and an email address. The results of this test will not be forwarded to me. [email or web address]-hng-testin g-sit r-mgteaqgosld-ydisqobu Routine adult health maintenance 08/31/2020 Intractable migraine with aura without status mi grainosus 08/31/2020 control counseling 08/16/2020 Assessment & Plan (08/16/2020 10:47 AM EST): Interested in continuing JEFF specifically with seasonique to have a period every 3 months. Will send Rx to pharmacy. Discussed risks associated with smoking and JEFF, patient understands risks. Through shared decision making, she still prefers to start the JEFF. She also is not willing to quit smoking at this time. Advised patient to reach out to our clinic when she is interested in quitting Rash 06/10/2020 Overview (06/10/2020): Present on anterior knee to chinchilla/foot since approximately April 2020. Assessment & Plan (06/10/2020 5:41 PM EDT): Most likely fungal infection, such as tinea corporis or versicolor. -Prescribed medication as noted below -Encouraged patient to continue supportive care measures she is already been doing, including keeping area clean and dry -Advised if rash does not resolve within 2 weeks to schedule in person follow-up appointment for further evaluation to rule out other possible conditions Back muscle spasm 02/02/2019 Assessment & Plan (06/04/2022 12:17 PM EDT): Recommended meloxicam daily and Flexeril 10 mg twice daily as needed. Will refer to chiropractor per patient's request. Assessment & Plan (02/03/2019 6:30 PM EDT): Secondary to heavy lifting at work. Flexeril 5 mg tablet twice daily as needed Meloxicam 15 mg tablet daily Stretching exercise Ice/heat as tolerated RTC/call the clinic as needed Nicotine dependence 02/02/2019 Assessment & Plan (02/03/2019 6:29 PM EDT): Currently using 10 cigarettes/day with plan to cut down, not ready to quit yet. Counseling given, and patient made aware of resources available to help her succeed when she is ready to stop smoking. Amenorrhea 01/22/2019 Assessment & Plan (01/22/2019 11:03 AM EDT): test is negative. Discussed this could be hormone related and may be a few months before periods regulate again. Options for control seem to be paraguard IUD, condoms or have her get a vasectomy since she has had side effects to most hormone related products. For now she will use condoms but will think about getting an paraguard in the future. Annual physical exam 01/08/2018 Assessment & Plan (02/03/2019 6:31 PM EDT): Patient presents to the clinic today for her annual physical exam. All her concerns were addressed Patient does have annual pelvic exam with her BROOD HATCHERY MANAGER doctor as well as Pap Tetanus vaccine offered and declined by patient Exercise and healthy eating discussed with patient Patient advised to always wear seatbelt when in the car and never texting while driving. RTC in 1 year for another physical exam Assessment & Plan (01/08/2018 8:42 PM EDT): Patient presented to the clinic today to establish care and to have her annual physical exam. She admits not seeing a doctor for a while but she was feeling well. She eats healthy, and has a normal BMI. We did address her major concerns during today's visit. Last Pap smear was done in March 2017 according to patient, and it was normal. She does follow-up with her nurse medical records assistant for FOOD AND NUTRITION TEACHER exams including STD screenings, and she will continue to see her. Left knee pain 01/08/2018 Assessment & Plan (01/08/2018 8:30 PM EDT): Patient report L knee pain for the [...] signs of worsening. We will consider PT Depression 01/08/2018 Assessment & Plan (01/08/2018 8:39 PM EDT): Patient present to the clinic today to [...] clinic, in case she needs any help History of drug abuse 11/25/2015 Resolved Problems Problem Noted Date Diagnosed Date Resolved Date Screening for chlamydial disease 12/14/2015 04/15/2018 Vaginitis 04/30/2012 01/08/2018 Supervision of normal 01/21/2012 04/15/2018 Family History Medical History Relation Name Comments Fibromyalgia Mother Heart defect Sister Relation Name Status Comments Mother Sister Social History Tobacco Use Types Packs/Day Years Used Date Smoking Tobacco: Every Day Cigarettes 0.5 10 Smokeless Tobacco: Never Tobacco Cessation:Ready to Q uit: No; Counseling Given: Yes Alcohol Use Standard Drinks/Week Comments Yes 0 (1 standard drink = 0.6 oz pur e alcohol) [facility] Answer Date Recorded Please reinaldo the areas for ich the patient would like information or assistance: None Apply 08/04/2021 Lack of Transportation (Medical) Not on file 08/04/2021 Housing Stability Answer Date Recorded Please reinaldo the areas for ich the patient would like information or assistance: None Apply 08/04/2021 Unable to Pay for Housing in the Last Year Not o n file 08/04/2021 Last EPDS Total Score Not on file 08/04/2021 Unstable Housing in the Last Year Not on file 08/04/2021 Comments No Sex and Gender Information Value Date Recorded Sex Assigned at Female 06/11/2022 10:37 AM EDT Legal Sex Female 12:20 AM EDT Gender Identity Female 06/11/2022 10:37 AM EDT Sexual Orientation Bisexual 06/11/2022 10 :37 AM EDT 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 Not on file Not on file Last Filed Vital Signs Vital Sign Reading Time Taken Comments Blood Pressure 108/70 06/04/2022 11:44 AM EDT Pulse 71 06/04/2022 11:44 AM EDT Temperature 36.3 ??C (97.3 ??F) 06/04/2022 11:44 AM E DT Respiratory Rate 16 07/03/2019 4:04 PM EDT Oxygen Saturation 98% 06/04/2022 11:44 AM EDT Inhaled Oxygen Concentration - - Weight 62.1 kg (137 lb) 06/04/2022 11:44 AM EDT Height 165.1 cm (5' 5 ) 08/04/2021 2:35 PM EST Body Mass Index 22.8 08/04/2021 2:35 PM EST Plan of Treatment Health Maintenance Due Date Last Done Comments HIV Screening 1991 Varicella Vaccines (1 of 2 - 13+ 2-dose series) 2004 Hepatitis B Vaccines (1 of 3 - 19+ 3-dose series) 2010 Pneumococcal Vaccine: Pediat osei (0-5 Years) and At-Risk Patients (6-50 Years) (1 of 2 - PCV) 2010 DTaP,Tdap,and Td Vaccines (1 - Tdap) 2013 HPV and Pap Smear 08/31/2014 08/31/2009, 08/31/2009 Cervical Cancer Screening 04/11/2020 Pap Smear 04/11/2020 04/11/2017, 03/23, 08/31/2009, Additional history exists COVID-19 Vaccine ( - 2023-2 5 season) 2024 Alcohol/Substance Use Screening 09/23/2024 Depression Screening and Follow-Up 09/23/2024 Social Drivers of Health Judy ual Screening 09/23/2024 Influenza Vaccine (Season Ended) 2025 06/21/20 13 RSV Vaccine (60+ years old a nd patients) (1 - 1-dose 75+ series) 2066 Hepatitis C Screening Completed 12/14/2015 , 10/06/2010, 08/31/2009 Procedures * Due to [place] Jim[place] law, this organization might not be sharing negative HIV tests. Procedure Name Priority Date/Time Associated Diagnosis Comments [facility] PAP NO HPV W/CT/NG Routine 04/11/2017 12:00 AM EDT HEPATITIS C ANTIBODY, CONVERSION Routine 12/14/2015 3:09 PM EDT PAP W/REFLEX HPV, CONVERSION Routine 08/31/2009 1:24 PM EST from Last 3 Months or Most Recently Relevant to Health Maintenance Results * Due to [place] law, this organization might not be sharing negative HIV tests. * [facility] Pap no HPV w/CT/NG (04/11/2017 12:00 AM EDT) [facility] Pap No HPV w/CT NG (See Below) [email or web address] Comment: THINPREP TIS& CT/NG ? This test was performed using the APTIMA COMBO2 Assay ? ([employer].). ? . ? The analytical performance characteristics of this ? assay, when used to test SurePath specimens have ? been determined by [employer]. ? . ?? CLINICAL INFORMATION: ? Routine exam ?? LMP: ? 04/03/17 ?? PREV. PAP: ? NEG ?? PREV. BX: ? NONE GIVEN ?? SOURCE: ? Cervix, Endocervix ?? STATEMENT OF ADEQUACY: ? Satisfactory for evaluation. ? Endocervical/transformation zone component ? present. ?? INTERPRETATION/RESULT: ? Negative for intraepithelial lesion or malignancy. ?? COMMENT: ? This Pap test has been evaluated with computer ? assisted technology. ?? AUTOMOBILE MECHANIC: ? MXD, CT (ASCP) ? CT screening location: [facility] ? [address] [place] [address] ? [place], [place] ??[address] ?? CHLAMYDIA TRACHOMATIS RNA, TMA: ? NOT DETECTED ?? NEISSERIA GONORRHOEAE RNA, TMA: ? NOT DETECTED Report Comments: ?? Received Date: 20170411 Performing Site: NL2 ?? [email or web address] ?? [address] [place] [address] ??[phone] ?? Director: DARRION RAPHAEL 04/11/2017 12:0 0 AM EDT 04/11/2017 10:35 PM EDT Mattie Person CN LAB [facility] AMBULATORY ORDERA BLES Final Result [employer] [address] Floor, [place] [address], * HEPATITIS C ANTIBODY, CONVERSION (12/14/2015 3:09 PM EDT) Hepatitis C Non-React karlie Non-React karlie 12/15/2015 11:26 AM EDT [facility] Comment:REQ# [id number] Blood specimen (specimen) 12/14/2015 3:09 PM EDT Comment:BLOOD us Mattie Person CN LAB HISTORICAL RESULTS Final R esult [facility] [address] [place] [address], * Pap w/Reflex HPV (08/31/2009 1:24 PM EST) Path Procedure TPGAD ([id number]) 1 ?? Edited by: [id number] [facility] ANATOMIC PATHOLOGY - BIOTECH THREE Specimen Labeled As: 1 CERVICAL/ENDOCERVI CHE CYTO MATERIAL - Edited by: [id number] [facility] ANATOMIC PATHOLOGY - BIOTECH THREE Diagnosis ThinPrep Pap Test ? Adequacy: Satisfactory for evaluation ? Interpretation: Negative for Intraepithelial Lesion or Malignancy ? Remarks/Recommenda tions: ?? This is the result of a morphological screening test with an inherent ?? probability of a false negative interpretation. ??HPV testing in combination ?? with a morphological Pap test reduces the probability of a serious cervical ?? epithelial abnormality in patients over age 30 and is cost-effective. HPV ?? testing can be useful in other clinical applications. ??See [place] ?? Journal of Obstetrics and Gynecology 197(4):346-355, 2006. ??This Pap test was ?? examined in accordance with the [facility] Cytopathology Laboratory written policy. ? This Pap test was examined by the ThinPrep Imaging System, [employer] ?? Incorporated, [place], [place]. ?? Edited by: [id number] - [id number] [address] [facility] ANATOMIC PATHOLOGY - BIOTECH THREE Gynecologic Clinical Data Specimen source:, THINPREP (ENDOCERVICAL ONLY) [facility] ANATOMIC PATHOLOGY - BIOTECH THREE Gynecologic Clinical Data First date of LMP:, 06-21-09 [facility] ANATOMIC PATHOLOGY - BIOTECH THREE Gynecologic Clinical Data Clinical Data:, LPS 2005 Negative, [facility] ANATOMIC PATHOLOGY - BIOTECH THREE Marker 1 ESTEFANÍA BRIONES [facility] ANATOMIC PATHOLOGY - BIOTECH THREE Marker 2 NILM,NILM [facility] ANATOMIC PATHOLOGY - BIOTECH THREE Cc Results To GEN Esteves REF [id number] [facility] ANATOMIC PATHOLOGY - BIOTECH THREE Signature REPORT SIGNED: ESTEFANÍA MAI 09/02/09 [facility] ANATOMIC PATHOLOGY - BIOTECH THREE Sign Out Audit ESTEFANÍA MAI [id number] FINAL [place] [id number] [facility] ANATOMIC PATHOLOGY - BIOTECH THREE Cytology / Unknown 1:24 PM EST 09/01/2009 1:24 PM EST us Lexy Carrera LAB HISTORICAL RESULTS Final Result Performing Organization Address City/State/[facility] Co de Phone Number [facility] ANATOMIC PATHOLOGY - BIOTECH THREE [address] [place] [id number], from Last 3 Months or Most Recently Relevant to Health Maintenance [facility] [place] Advance Directives Documents on File Type Date Recorded Patient Knapsack Sprayer Expl anation Guardianship 01/24/2016 [id number] Health Care Proxy 01/24/2016 [id number] Care Teams Security System Installer Relationship Specialty Start Date End Date Luis Calixto DO [address] [place] [id number] PCP - General 03/23/24
--- OUTSIDE RECORDS SUMMARY | 2025-01-05 16:35 | XMS_ITS | Encounter Summary ---
Author Organization [employer] Address [address] [facility] 7t [place] [address] Care Team Providers Care Grain Unloader Name Role Phone Lidia Barlow MD Primary Care Provider [phone] Reason for Visit * Reason Onset Date Comments Results 01/05/2025 Encounter Details Date Type Department Care Team ([facility] st Contact Info) Description 01/05/2025 Telephone [facility] [address] [place], [place] [phone] Name, MD Giovany [address] [place] [address] Results Social History Tobacco Use Types Packs/Day Years Used Date Smoking Tobacco: Every Day Cigarettes Passive Smoke Exposure: Current Smokeless Tobacco: Never Depression Answer Date Recorded Patient Health Questionnaire-9 [...] the past 12 months, has t he electric, gas, oil or water company threatened to shut off services in your home? No 07/08/2023 Depression Answer Date Recorded Patient Health Questionnaire-2 Score 0 01/30/2024 Comments Unknown Sex and Gender Information Value Date Recorded Sex Assigned at Female 03/12/2023 10:44 AM EDT Legal Sex Female 10:39 AM EDT Gender Identity Female 03/12/2023 10:44 AM EDT Sexual Orientation Bisexual 09/13/2023 4: 37 PM EST documented as of this encounter Miscellaneous Notes * Telephone Encounter - Miranda Hernandez RN - 01/05/2025 2:20 PM EDT TC placed to pt to inform and advise of below provider message. Pt verbalized understanding of x-ray being negative for fracture and provider recommendation to keep appointment with orthopedics. Pt denies questions at this time. ----- Message from Giovany Corea MD sent at 01/05/2025 2:11 PM EDT ----- Please let the patient know the x-ray was negative for fracture. I recommend she keep her appointment with orthopedics. documented in this encounter Plan of Treatment Not on file documented as of this encounter Visit Diagnoses Not on filedocumented in this encounter Additional Health Concerns Assessment Noted Time PHQ-9 Depression Total Score: 2 01/30/20 24 10:51 AM EDT documented as of this encounter Care Teams Grain Unloader Relationship Specialty Start Date End Date Lidia Barlow MD [address] [place] [address] PCP - General Family Medicine 09/13/23 documented as of this encounter
--- OUTSIDE RECORDS SUMMARY | 2025-01-05 16:35 | XMS_ITS | Referral Summary ---
Author Organization [facility] Address [address] [place] [address] Care Team Providers Care Glass Forming Engineer Name Role Phone Luis Calixto Primary Care Provider [phone] Allergies Active Allergy Reactions Criticality Noted Date [...] 4:09 PM EST): Inform patient to visit [facility] testing tent for traveling. The patient will need to bring a valid photo ID and an email address. The results of this test will not be forwarded to me. [email or web address]/[email or web address]-vvg-testin g-sit g-wtkrjuwzndd-vphbtwtq Routine adult health maintenance 08/31/2020 Intractable migraine [...] does have annual pelvic exam with her SUPERVISOR RECLAMATION doctor as well as Pap Tetanus vaccine [...] normal. 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 Procedure Name Priority Date/Time Associated Diagnosis Comments [facility] PAP NO HPV W/CT/NG Routine 04/11/2017 12:00 AM EDT HEPATITIS C ANTIBODY, CONVERSION Routine 12/14/2015 3:09 PM EDT PAP W/REFLEX HPV, CONVERSION Routine 08/31/2009 1:24 PM EST from Last 3 Months or Most Recently Relevant to Health Maintenance Results * Due to [place] state law, this organization might not be sharing negative HIV tests. * [facility] Pap no HPV w/CT/NG (04/11/2017 12:00 AM EDT) [facility] Pap No HPV w/CT NG (See Below) [employer] Comment: THINPREP TIS& CT/NG ? This test was performed using the APTIMA COMBO2 Assay ? ([employer].). ? . ? The analytical performance characteristics of this ? assay, when used to test SurePath specimens have ? been determined by [employer]. ? . ?? CLINICAL INFORMATION: ? Routine [...] evaluated with computer ? assisted technology. ?? [facility] TECHNICIAN: ? MXD, CT (ASCP) ? CT screening location: [facility] ? [address] [place] [address] ? [place], [place] ??[address] ?? CHLAMYDIA TRACHOMATIS RNA, TMA: ? NOT DETECTED ?? NEISSERIA GONORRHOEAE RNA, TMA: ? NOT DETECTED Report Comments: ?? Received Date: 20170411 Performing Site: NL2 ?? [employer] [facility] ?? [address] [place] [address] ??[phone] ?? Director: DARRION RAPHAEL 04/11/2017 12:0 0 AM EDT 04/11/2017 10:35 PM EDT Mattie Person CNM LAB [facility] AMBULATORY ORDERA BLES Final Result Performing Organization Address [facility]/ZIP Co de Phone Number [employer] [address] [facility], [place] [address], * HEPATITIS C ANTIBODY, CONVERSION (12/14/2015 3:09 PM EDT) Pathologist [facility] Hepatitis C Non-React karlie Non-React karlie 12/15/2015 11:26 AM EDT [facility] Comment:REQ# [id number] Blood specimen (specimen) 12/14/2015 3:09 PM EDT Comment:BLOOD Mattie Person CNM LAB HISTORICAL RESULTS Final R esult Performing Organization Address City/[facility]/ZIP Co de Phone Number [facility] [address] [place] [address], * Pap w/Reflex HPV (08/31/2009 1:24 PM EST) Path Procedure TPGAD ([id number]) 1 ?? Edited by: [id number] - [id number] [facility] ANATOMIC PATHOLOGY - BIOTECH THREE Specimen Labeled As: 1 CERVICAL/ENDOCERVI CHE CYTO MATERIAL - Edited by: [id number] [facility] ANATOMIC PATHOLOGY - BIOTECH THREE Diagnosis ThinPrep [...] be useful in other clinical applications. ??See [place]i ?? Journal of Obstetrics and Gynecology 197(4):346-355, 2007. ??This Pap test was ?? examined in accordance with the [facility] Cytopathology Laboratory written policy. ? This Pap test was examined by the ThinPrep Imaging System, [employer] ?? [employer], [place], [place]. ?? Edited by: [id number] [facility] ANATOMIC PATHOLOGY - BIOTECH THREE Gynecologic Clinical Data Specimen source:, THINPREP (ENDOCERVICAL ONLY) [facility] ANATOMIC PATHOLOGY - BIOTECH THREE Gynecologic Clinical Data First date of LMP:, 06-21-09 [facility] ANATOMIC PATHOLOGY - BIOTECH THREE Gynecologic Clinical Data Clinical Data:, LPS 2005 Negative, [facility] ANATOMIC PATHOLOGY - BIOTECH THREE Marker 1 ESTEFANÍA BRIONES [facility] ANATOMIC PATHOLOGY - BIOTECH THREE Marker 2 NILM,NILM [facility] ANATOMIC PATHOLOGY - BIOTECH THREE Cc Results To GEN Esteves REF [id number] [facility] ANATOMIC PATHOLOGY - BIOTECH THREE Signature REPORT SIGNED: ESTEFANÍA MAI 09/02/09 [facility] ANATOMIC PATHOLOGY - BIOTECH THREE Sign Out Audit ESTEFANÍA MAI [id number] FINAL [place] [id number] [facility] ANATOMIC PATHOLOGY - BIOTECH THREE Cytology / Unknown 1:24 PM EST 09/01/2009 1:24 PM EST us Lexy Carrera LAB HISTORICAL RESULTS Final Result [facility] ANATOMIC PATHOLOGY - BIOTECH [address] [place] [address], from Last 3 Months or Most Recently Relevant to Health Maintenance [place] [id number] Advance Directives Documents on File Type Date Recorded Patient Steel Finisher Expl anation Guardianship 01/24/2016 [id number] Health Care Proxy 01/24/2016 [id number] Care Teams Glass Forming Engineer Relationship Specialty Start Date End Date Luis Calixto DO [address] [place] [address] [place] [address] PCP - General 03/23/24
--- OUTSIDE RECORDS SUMMARY | 2025-01-05 16:35 | XMS_ITS | Encounter Summary ---
Author Organization [employer] Address [address] [place] [address] Care Team Providers Care Paediatrician Name Role Phone Lidia Barlow MD Primary Care Provider [phone] Encounter Details Date Type Department Care Team ([facility] st Contact Info) Description 04/04/2023 Telephone [facility] ADULT DENTAL [address] [place] [address] Mustapha Singleton DDS [address] [place] [address] Social History Tobacco Use Types Packs/Day Years Used Date Smoking Tobacco: Never Assessed Comments Unknown Sex and Gender Information Value Date Recorded Sex Assigned at Female 03/12/2023 10:44 AM EDT Legal Sex Female 10:39 AM EDT Gender Identity Female 03/12/2023 10:44 AM EDT Sexual Orientation Bisexual 09/13/2023 4: 37 PM EST COVID-19 Exposure Response Date Recorded In the last 10 days, have yo u been in contact with someone who was confirmed or suspected to have Coronavirus/COVID-19? No / Unsure 03/12/2023 12:51 PM EDT documented as of this encounter Miscellaneous Notes * Telephone Encounter - Lillian Alfonso - 04/04/2023 10:31 AM EDT Mikal was seen on 03/12 for emergency and was referred out for Oral Surgery due to anxiety. She contacted Oral Surgery office and was scheduled for next year. She is asking if there is another provider that can do the extt. I informed patient thtat I would send message to provider and see if based off xrays if he can do extraction because she got in touch with her PCP and he is scripting her valium to help her relax for the apt. I did explain that provider still does have a waiting list so unsure how soon she would get in to be seen. She is looking to have the lower left molar taken out because it is the one that is causing the most pain. documented in this encounter Plan of Treatment Not on file documented as of this encounter Visit Diagnoses Not on filedocumented in this encounter Care Teams Paediatrician Relationship Specialty Start Date End Date Lidia Barlow MD [address] [place] [address] PCP - General Family Medicine 09/13/23 documented as of this encounter
--- OUTSIDE RECORDS SUMMARY | 2025-01-05 16:35 | XMS_ITS | Continuity of Care Document ---
Author Organization Anand Esteves [facility] Address [address] [address],[address] [place] [address] Phone Care Team Providers Care Slip Cover Estimator Name Role Phone Unavailable Unavailable Unavailable Medications [...] Date Provider Providers Copied on Encounter Anand [facility], [address] [place] [address],[address], [id number], tel:[phone] [facility] Encounter for dental exam and cleaning w/o abnormal findings 0 No Information maik [facility], [address] [place] [address],[facility] [address], [id number], tel:[phone] [facility] Encounter for dental exam and cleaning w/o abnormal findings 0 Ron Garnett. [address] [place] [address], [id number], . tel:[phone] Anand Esteves [facility], [address] [place] [address],[address], [place], [id number], [place] tel:[phone] [facility] Absence of menstruationPr egnancy examination or test, positive result 2 Pastor Scott. [address], [place], [id number], [place]. tel:[phone] Family History Family Member Type Diagnosis Age At Onset No Information Payers Payer name Insurance type Covered alliance party ID Billy christine(zara) [employer] Safety Net [id number] Social History Type Description Quantity Date Captured [...]
--- OUTSIDE RECORDS SUMMARY | 2025-01-05 16:35 | XMS_ITS | Encounter Summary ---
Author Organization [employer] Address [address] [facility] [address] [place] [address] Care Team Providers Care Filler Shredder Helper Name Role Phone Lidia Barlow MD Primary Care Provider [phone] Reason for Visit * Reason Onset Date Comments Nurse Triage 01/05/2025 Encounter Details Date Type Department Care Team ([facility] st Contact Info) Description 01/05/2025 Telephone [facility] [address] [place], [place] [phone] Lidia Barlow MD [address] [place] [address] Nurse Triage Social History Tobacco Use Types Packs/Day Years [...] encounter Miscellaneous Notes * Telephone Encounter - Patti Payan RN - 01/05/2025 11:52 AM EDT called pt to triage, spoke to pt. pt states fell 2 days ago, and injured her left knee. pt states fell on the ice while skating and having difficulty with ROM, bending, and ambulating. pt using a knee immobilizer for now and requesting given appt. with [facility] provider at 3:30 for exam. advised home care: rest, ice, heat, elevate, OTC pain reliever as needed, and call back if worsening or new concerns. pt understands and agrees with plan. insurance verified. Protocol Used: Knee Injury (Adult) Protocol-Based Disposition: See in Office or Video Visit within 3 Days Video visit offer not recorded Positive Triage Question: * Injury and pain has not improved after 3 days * All higher-acuity triage questions were negative Care Advice Discussed: * Reassurance and Education - Direct Blow (Minor Bruise, Contusion) * Use a Cold Pack for Pain, Swelling, or Bruising * Use Heat on Area After 48 Hours * Rest vs. Movement * Reasons To Call Back - Pain becomes severe - Pain does not improve after 3 days - Pain or swelling lasts more than 2 weeks - You become worse * Telephone Encounter - Corrie Reese - 01/05/2025 10:19 AM EDT Symptom: Knee Pain - Not From Injury Outcome: Schedule an urgent appointment (within 1 hour) or talk to a nurse or provider soon Reason: Trouble walking The caller accepted this outcome. documented in this encounter Plan of Treatment Not on file documented as of this encounter Visit Diagnoses Not on filedocumented in this encounter Additional Health Concerns Assessment Noted Time PHQ-9 Depression Total Score: 2 01/30/20 10:51 AM EDT documented as of this encounter Care Teams Filler Shredder Helper Relationship Specialty Start Date End Date Lidia Barlow MD [address] [place] [address] PCP - General Family Medicine 09/13/23 documented as of this encounter
--- OUTSIDE RECORDS SUMMARY | 2025-01-05 16:35 | XMS_ITS | Encounter Summary ---
Author Organization [employer] Address [address] [place] [address] Care Team Providers Care Pallet Stone Positioner Name Role Phone Lidia Barlow MD Primary Care Provider [phone] Reason for Referral * Consultation (Routine) - Pending Review Specialty Diagnoses / Procedures Referred By Sammie leonard Referred To Contact Orthopaedic Surgery Diagnoses Acute pain of left knee Pain and swelling of left knee Giovany Corea MD [address] [place] [address] Phone: tel: fax: Referral ID Status Reason Start Date Expiration Date Visits Requested Visits Authorized [id number] Pending Review Specialty Services Required 01/05/2025 01/05/2026 1 1 Reason for Visit * Reason Comments Knee Pain Encounter Details Date Type Department Care Team ([facility] [place] [facility] st Contact Info) Description 01/05/2025 1:40 PM EDT Office Visit [facility] [address] [place] [address] Giovany Corea MD [address] [place] [address] Acute pain of left knee (Primary Dx); Pain and swelling of left knee; Impaired mobility Social History Tobacco Use Types Packs/Day Years Used Date Smoking Tobacco: Every Day Cigarettes Passive Smoke Exposure: Current Smokeless Tobacco: Never Depression Answer Date Recorded Patient Health Questionnaire-9 Score 2 01/30/2024 Patient Health Questionnaire-9 Score 2 01/30/2024 Last PHQ-9: Questionnaire Data Not on file 0 01/30/2024 Housing Stability Answer Date Recorded What is your housing situation today? I have kevin sing 07/08/[address] you li [...] PM EST documented as of this encounter Last Filed Vital Signs Vital Sign Reading Time Taken Comments Blood Pressure 120/79 01/05/2025 12:57 PM EDT Pulse 79 01/05/2025 12:57 PM EDT Temperature 36.8 ??C (98.2 ??F) 01/05/2025 12:57 PM E DT Respiratory Rate 17 01/05/2025 12:57 PM EDT Oxygen Saturation 97% 01/05/2025 12:57 PM EDT Inhaled Oxygen Concentration - - Weight - - Height - - Body Mass Index - - documented in this encounter Progress Notes * Giovany Corea MD - 01/05/2025 1:40 PM EDT Subjective Patient ID: Soco Delgado is a 34 y.o. female who presents for Knee Pain. Patient comes complaining of left knee pain, swelling, decreased range of motion of the left knee after a fall skating yesterday. She landed on the left knee. The patient comes wearing a left knee immobilizer. The anterior left knee is swollen and bruised. The patient is not . She is on oral contraception. Review of Systems Musculoskeletal: See HPI Visit Vitals BP 120/79 (BP Location: Right arm, Patient Position: Sitting, BP Cuff Size: Adult) Pulse 79 Temp 98.2 ??F (36.8 ??C) (Temporal) Resp 17 SpO2 97% Smoking Status Every Day Objective Physical Exam Constitutional: General: She is not in acute distress. Cardiovascular: Rate and Rhythm: Normal rate and regular rhythm. Pulmonary: Effort: Pulmonary effort is normal. No respiratory distress. Musculoskeletal: Comments: There is swelling of the left knee, decreased range of motion, bruising on the anterior left knee Assessment/Plan Diagnoses and all orders for this visit: Acute pain of left knee Comments: Continue knee immobilizer She was prescribed a cane to facilitate ambulation Mobic for pain X-ray today of the left knee Referral to orthopedics. Orders: - XR Knee 4+ Views Left; Future - Referral to Orthopaedic Surgery; Future Pain and swelling of left knee - XR Knee 4+ Views Left; Future - Referral to Orthopaedic Surgery; Future Other orders - meloxicam (Mobic) 7.5 MG tablet; Take 1 tablet (7.5 mg) by mouth Once per day. documented in this encounter Plan of Treatment Scheduled Referrals Name Type Priority Associated Diagnoses Order Schedule Referral to Orthopaedic Surgery Outpatient Referral Routine Acute pain of left knee Pain and swelling of left knee Expected: 01/05/2025 (Approximate), Expires: 01/05/2026 documented as of this encounter Procedures Procedure Name Priority Date/Time Associated Diagnosis Comments XR KNEE 4+ VIEWS LEFT Routine 01/05/2025 1:32 PM EDT Acute pain of left knee Pain and swelling of left knee documented in this encounter Results * XR Knee 4+ Views Left (01/05/2025 1:32 PM EDT) Anatomical Region Laterality Modality Lower Extremities, Knee Left [facility] 01/05/2025 1:32 PM EDT Narrative 01/05/2025 2:07 PM EDT ?[facility] ?[address] ?[place] [address] ?XRay Report ? Signed ? Patient: Delgado,Soco ?MR#: [id number] ?? 69 ? : 1990 ?Acct:[id number] ? Age/Sex: 34 / F ?ADM Date: 01/05/25 ? Loc: HO.HHCX ? Attending Dr: Giovany Corea MD ? Ordering Physician: Giovany Corea MD ?? Date of Service: 01/05/25 ?? Procedure(s): XR knee LT 4V ?? Accession Number(s): [id number] ? cc: Giovany Corea MD ? EXAMINATION: [...] DD/ 1332 ? TD/TT: 01/05/25 1358 ? Insulation Foreman: ? Procedure Note Yasmany, Image - 01/05/[address] [address] XRay Report Signed Patient: Soco DelgadoMR#: [id number] 69 : 1990Acct:[id number] Age/Sex: 34 / FADM Date: 01/05/25 Loc: HO.HHCX Attending Dr: Giovany Corea MD Ordering Physician: Giovany Corea MD Date of Service: 01/05/25 Procedure(s): XR knee LT 4V Accession Number(s): [id number] cc: Giovany Corea MD EXAMINATION: XR KNEE, [...] 01/05/25 1404 DD/ 1332 TD/TT: 01/05/25 1358 Insulation Foreman: us Giovany Name IMG XR PROCEDURES Final Result documented in this encounter Visit Diagnoses Diagnosis Acute pain of left knee- Primary Pain and swelling of left knee Impaired mobility Other ill-defined conditions documented in this encounter Additional Health Concerns Assessment Noted Time PHQ-9 Depression Total Score: 2 01/30/20 24 10:51 AM EDT documented as of this encounter Care Teams Pallet Stone Positioner Relationship Specialty Start Date End Date Lidia Barlow MD [address] [place] [address] PCP - General Family Medicine 09/13/23 documented as of this encounter
== END 2025-01-05 13:32 | disposition home or self-care (01) ==
LOC: HO.HHCX 13:31
PROVIDERS: Visit Provider Internal Medicine Geriatric Medicine
DX: M25.562 Pain in left knee (principal); M25.462 Effusion, left knee
CPT/HCPCS: 73564

== ENCOUNTER → 2025-01-05 13:32 | Outpatient (BNV) | payer MEDICAID, SELFPAY | PROVIDERS: Visit Provider Radiology Diagnostic Radiology | DX: M25.562 Pain in left knee (principal) | CPT/HCPCS: 73564 ==

== ENCOUNTER 2025-03-01 09:01 | Outpatient (REF) | payer MEDICAID, SELFPAY ==
--- OUTSIDE RECORDS SUMMARY | 2025-03-02 09:39 | XMS_ITS | Clinical Summary ---
Author Organization [facility] Address [address] [place] [address] Care Team Providers Care Administration Assistant Name Role Phone Luis Calixto Primary Care Provider [phone] Allergies Active Allergy Reactions Criticality Noted Date [...] 4:09 PM EST): Inform patient to visit [facility] testing tent for traveling. The patient will need to bring a valid photo ID and an email address. The results of this test will not be forwarded to me. [email or web address]-emf-[email or web address] g-sit o-gdisnjagwos-kupchzed Routine adult health maintenance 08/31/2020 Intractable migraine [...] does have annual pelvic exam with her WEB APPLICATIONS PROGRAMMER doctor as well as Pap Tetanus vaccine [...] normal. 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 Procedure Name Priority Date/Time Associated Diagnosis Comments [facility] PAP NO HPV W/CT/NG Routine 04/11/2017 12:00 AM EDT HEPATITIS C ANTIBODY, CONVERSION Routine 12/14/2015 3:09 PM EDT PAP W/REFLEX HPV, CONVERSION Routine 08/31/2009 1:24 PM EST from Last 3 Months or Most Recently Relevant to Health Maintenance Results * Due to [place] [employer] law, this organization might not be sharing negative HIV tests. * [facility] Pap no HPV w/CT/NG (04/11/2017 12:00 AM EDT) [facility] Pap No HPV w/CT NG (See Below) [email or web address] Comment: THINPREP TIS& CT/NG ? This test was performed using the APTIMA COMBO2 Assay ? ([employer] ? . ? The analytical performance characteristics of this ? assay, when used to test SurePath specimens have ? been determined by [facility]. ? . ?? CLINICAL INFORMATION: ? Routine [...] evaluated with computer ? assisted technology. ?? OIL PIPE INSPECTOR: ? MXD, CT (ASCP) ? CT screening location: [facility] ? [address] [place] [address] ? [employer], [place] ??[address] ?? CHLAMYDIA TRACHOMATIS RNA, TMA: ? NOT DETECTED ?? NEISSERIA GONORRHOEAE RNA, TMA: ? NOT DETECTED Report Comments: ?? Received Date: [id number] Performing Site: NL2 ?? [email or web address] ?? [address] [place] [address] ??[phone] ?? Director: DARRION RAPHAEL 04/11/2017 12:0 0 AM EDT 04/11/2017 10:35 PM EDT Mattie Person CN LAB [facility] AP AMBULATORY ORDERA BLES Final Result [employer] [address] Floor, [place] [address], * HEPATITIS C ANTIBODY, CONVERSION (12/14/2015 3:09 PM EDT) Hepatitis C Non-React karlie Non-React karlie 12/15/2015 11:26 AM EDT [facility] Comment:REQ# [id number] Blood specimen (specimen) 12/14/2015 3:09 PM EDT Comment:BLOOD us Mattie Person CN LAB HISTORICAL RESULTS Final R esult [facility] [address] [place] [address], * Pap w/Reflex HPV (08/31/2009 1:24 PM EST) Path Procedure TPGAD ([id number]) 1 ?? Edited by: [id number] [facility] ANATOMIC PATHOLOGY - BIOTECH THREE Specimen Labeled As: 1 CERVICAL/ENDOCERVI CHE CYTO MATERIAL - Edited by: [id number] [facility] ANATOMIC PATHOLOGY - BIOTECH THREE Diagnosis [...] was ?? examined in accordance with the [facility] Cytopathology Laboratory written policy. ? This Pap test was examined by the ThinPrep Imaging System, [employer], [place], [place]. ?? Edited by: [id number] [address] [facility] ANATOMIC PATHOLOGY - BIOTECH THREE Gynecologic Clinical Data Specimen source:, THINPREP (ENDOCERVICAL ONLY) [facility] ANATOMIC PATHOLOGY - [facility] THREE Gynecologic Clinical Data First date of LMP:, 06-21-09 [facility] ANATOMIC PATHOLOGY - [facility] THREE Gynecologic Clinical Data Clinical Data:, LPS 2005 Negative, [facility] ANATOMIC PATHOLOGY - [facility] THREE Marker 1 ESTEFANÍA BRIONES [facility] ANATOMIC PATHOLOGY - BIOTECH THREE Marker 2 NILM,NILM [facility] ANATOMIC PATHOLOGY - BIOTECH THREE Cc Results To GEN Esteves REF [id number] [facility] ANATOMIC PATHOLOGY - BIOTECH THREE Signature REPORT SIGNED: ESTEFANÍA MAI 09/02/09 [facility] ANATOMIC PATHOLOGY - [facility] THREE Sign Out Audit ESTEFANÍA MAI [id number] FINAL NEW [place] [id number] [facility] ANATOMIC PATHOLOGY - BIOTECH THREE Cytology / Unknown 1:24 PM EST 09/01/2009 1:24 PM EST us Lexy Carrera LAB HISTORICAL RESULTS Final Result Performing Organization Address City/State/[facility] Co de Phone Number [facility] ANATOMIC PATHOLOGY - BIOTECH THREE [address] [place], [place] [id number], from Last 3 Months or Most Recently Relevant to Health Maintenance Insurance [facility] Advance Directives Documents on File Type Date Recorded Patient Screed Person Expl anation Guardianship 01/24/2016 [id number] Health Care Proxy 01/24/2016 [id number] Care Teams Administration Assistant Relationship Specialty Start Date End Date Luis Calixto DO [address] [place] [address] PCP - General 03/23/24
== END 2025-03-01 09:02 | disposition home or self-care (01) ==
LOC: HO.HOSX 09:01
PROVIDERS: Visit Provider Physician Assistant
DX: Z13.89 Encounter for screening for other disorder (principal)

== ENCOUNTER 2025-04-01 13:08 | Outpatient (AMB) | payer MEDICAID, SELFPAY ==
--- OUTSIDE RECORDS SUMMARY | 2020-03-30 10:30 | XMS_ITS | Continuity of Care Document ---
Author Organization Anand Esteves [facility] Address [address] [address],[address] [place] [address] Phone Care Team Providers Care Shaft Repairer Name Role Phone Unavailable Unavailable Unavailable Medications Medication Instructions Dosage Effective Dates (start - stop) Status Comments clindamycin HCl 150 mg capsule take 1 capsule by oral route every 6 hours 150 MG - Active Procedures Procedure Date Extraction, Erupted Tooth Or Exposed Theresa t (Elevati Limited Oral Evaluation-Problem Focused Intraoral-Periapical First Film 020 Advance Directives Directive Yes / No Effective Date File Name No Information Encounters Encounter Description Practice Location Reason(s) For Visit Diagnoses Date Provider Providers Copied on Encounter Anand [facility], [address] [place] [address],[address], [id number], tel:[phone] [facility] Encounter for dental exam and cleaning w/o abnormal findings 0 No Information maik [facility], [address] [place] [address],[facility] [address], [place], [id number], tel:[phone] [facility] Encounter for dental exam and cleaning w/o abnormal findings 0 Ron Garnett. [address] [place] [address], [id number], . tel:[phone] Anand Esteves [facility], [address] [place] [address],[address], [place], [id number], [place] tel:[phone] [facility] Absence of menstruationPr egnancy examination or test, positive result 2 Pastor Scott. [address], [place], [id number], [place]. tel:[phone] Family History Family Member Type Diagnosis Age At Onset No Information Payers Payer name Insurance type Covered constitution party ID Billy christine(zara) [employer] [id number] Social History Type Description Quantity Date Captured Comments Sex Female Smoking Status No Information Chief Complaint And Reason For Visit No Information Reason For Referral Reason For Referral No Information Plan Of Treatment Date Type Action Status Goal Unhealthy drug use screening . Due on due Goal Influenza vaccine. Due on due Goal PAP. Due on due Goal APE. Due on due Goal Document SOGI Information. D ue on due Goal Diabetes Screening. Due on due Goal Td vaccine. Due on due Goal Tdap. Due on due History Of Present Illness Encounter Date Complaint History Of Prese nt Illness No Information Functional Status Date Functional Assessmen t No Information Instructions Date Instruction Additional Infor mation No Information Assessments Type Assessment Date No Information Patient Care Teams Name Effective Dates (start - stop) Status Members No Information
--- OUTSIDE RECORDS SUMMARY | 2025-04-01 13:11 | XMS_ITS | Clinical Summary ---
Author Organization [facility] Address [address] [place] [address] Care Team Providers Care Client Account Assistant Name Role Phone Luis Calixto Primary Care Provider [phone] Allergies Active Allergy Reactions Criticality Noted Date [...] 4:09 PM EST): Inform patient to visit [facility] testing tent for traveling. The patient will need to bring a valid photo ID and an email address. The results of this test will not be forwarded to me. [email or web address]/qzqkf-17-jup-testin g-sit a-njpaqaithao-izzkoujs Routine adult health maintenance 08/31/2020 Intractable migraine [...] does have annual pelvic exam with her ENGROSSER doctor as well as Pap Tetanus vaccine [...] normal. 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 Procedure Name Priority Date/Time Associated Diagnosis Comments [facility] PAP NO HPV W/CT/NG Routine 04/11/2017 12:00 AM EDT HEPATITIS C ANTIBODY, CONVERSION Routine 12/14/2015 3:09 PM EDT PAP W/REFLEX HPV, CONVERSION Routine 08/31/2009 1:24 PM EST from Last 3 Months or Most Recently Relevant to Health Maintenance Results * Due to [place] Mero[employer] law, this organization might not be sharing negative HIV tests. * [facility] Pap no HPV w/CT/NG (04/11/2017 12:00 AM EDT) [facility] Pap No HPV w/CT NG (See Below) [employer] Comment: THINPREP TIS& CT/NG This test was performed using the APTIMA COMBO2 Assay ([employer] . The analytical performance characteristics of this assay, when used to test SurePath specimens have been determined by [employer]. . CLINICAL INFORMATION: Routine exam LMP: 04/03/17 PREV. PAP: NEG PREV. BX: NONE GIVEN SOURCE: Cervix, Endocervix STATEMENT OF ADEQUACY: Satisfactory for evaluation. Endocervical/transformation zone component present. INTERPRETATION/RESULT: Negative for intraepithelial lesion or malignancy. COMMENT: This Pap test has been evaluated with computer assisted technology. THERAPEUTIC RECREATION DIRECTOR: ABRIL CT (ASCP) CT screening location: [place] [address] CHLAMYDIA TRACHOMATIS RNA, TMA: NOT DETECTED NEISSERIA GONORRHOEAE RNA, TMA: NOT DETECTED Report Comments: Received Date: [id number] Performing Site: [facility] [employer] [address] [address] Director: DARRION RAPHAEL 04/11/2017 12:0 0 AM EDT 04/11/2017 10:35 PM EDT Mattie Person CNM LAB [facility] AP AMBULATORY ORDERA BLES Final Result Performing Organization Address City/[facility]/ZIP Co de Phone Number [employer] [address], [place] [address], * HEPATITIS C ANTIBODY, CONVERSION (12/14/2015 3:09 PM EDT) Hepatitis C Non-React karlie Non-React karlie 12/15/2015 11:26 AM EDT [facility] Comment:REQ# [id number] Blood specimen (specimen) 12/14/2015 3:09 PM EDT Comment:BLOOD Mattie Person CNM LAB HISTORICAL RESULTS Final R esult Performing Organization Address City/[facility]/ZIP Co de Phone Number [facility] [address] [place] [address], [place] * Pap w/Reflex HPV (08/31/2009 1:24 PM EST) Path Procedure TPGAD ([id number]) 1 Edited by: [id number] [facility] - [facility] Specimen Labeled As: 1 CERVICAL/ENDOCERVI CHE CYTO MATERIAL - Edited by: [id number] [facility]ATOM[facility] - [facility] Diagnosis ThinPrep Pap Test Adequacy: Satisfactory for evaluation Interpretation: Negative for Intraepithelial Lesion or Malignancy Remarks/Recommenda tions: This is the result of a morphological screening test with an inherent probability of a false negative interpretation. HPV testing in combination with a morphological Pap test reduces the probability of a serious cervical epithelial abnormality in patients over age 30 and is cost-effective. HPV testing can be useful in other clinical applications. See [place] Journal of Obstetrics and Gynecology 197(4):346-355, 2007. This Pap test was examined in accordance with the [facility] Cytopathology Laboratory written policy. This Pap test was examined by the ThinPrep Imaging System, [employer] [place], [place]. Edited by: [id number] DRE [facility]ATOM[facility]OLOG[facility] - [facility] Gynecologic Clinical Data Specimen source:, THINPREP (ENDOCERVICAL ONLY) [facility] Gynecologic Clinical Data First date of LMP:, 06-21-09 [facility] Gynecologic Clinical Data Clinical Data:, LPS 2004 Negative, [facility] Marker 1 ESTEFANÍA BRIONES [facility] ANATOM[facility] PATHOLOG[facility] - [facility] Marker 2 NILM,NILM [facility] Cc Results To GEN Esteves REF [id number] [facility] Signature REPORT SIGNED: ESTEFANÍA MAI 09/02/09 [facility] Sign Out Audit ESTEFANÍA MAI [id number] FINAL NEW DRE [id number] [facility] Cytology / Unknown 9 1:24 PM EST 09/01/2009 1:24 PM EST us Lexy Carrera LAB HISTORICAL RESULTS Final Result [facility] [address] [place] [phone], from Last 3 Months or Most Recently Relevant to Health Maintenance [place] Advance Directives Documents on File Type Date Recorded Patient Chief Medical Technologist Expl anation Guardianship 01/24/2016 [id number] Health Care Proxy 01/24/2016 [id number] Care Teams Client Account Assistant Relationship Specialty Start Date End Date Luis Calixto DO [address] [place] [address] [place] [address] PCP - General 03/23/24
--- OUTSIDE RECORDS SUMMARY | 2025-04-01 13:11 | XMS_ITS | Encounter Summary ---
Author Organization [employer] Address [address] [place] [address] Care Team Providers Care Snap Shearer Name Role Phone Lidia Barlow MD Primary Care Provider [phone] Encounter Details Date Type Department Care Team (Late st Contact Info) Description 04/04/2023 Telephone [facility] [address] [place] [address] Mustapha Singleton DDS [address] [place] [address] Social History Tobacco Use Types Packs/Day Years [...] on filedocumented in this encounter Care Teams Snap Shearer Relationship Specialty Start Date End Date Lidia Barlow MD [address] [place] [address] PCP - General Family Medicine 09/13/23 documented as of this encounter
--- NOTE | 2025-04-01 13:18 | A.OFFVIS_ITS ---
Vital Signs 04/01/25 13:25 Height 5 ft 3 in Weight 155 lb BMI 27.5 Intake Visit Reasons: New prob-Lt knee swelling, decreased ROM Intake Note: Soco is a 34 year old female who presents today as a new problem for evaluation of left knee. Patient states that in 2018 she had an injury that popped out her knee. She then added that she had another injury from falling onto the left knee a few months ago. Patient states that she did go to urgent care at [facility], where they did X ray's of her knee. She reports that she has tried ice packs, heating pads, elevating with mild relief. Patient adds that she does take NSAIDs as needed for the pain. She reports that she does have swelling and numbness with pinching pains. Allergies ibuprofen Allergy (Verified 04/01/25 13:23) Vomiting Opioids - Morphine Analogues Allergy (Verified 04/01/25 13:23) Vomiting Sulfa (Sulfonamide Antibiotics) Allergy (Verified 04/01/25 13:23) Difficulty Breathing sulfamethoxazole (From Bactrim) Allergy (Verified 04/01/25 13:23) Anaphylaxis trimethoprim (From Bactrim) Allergy (Verified 04/01/25 13:23) Anaphylaxis Medication List - Last Reconciled 04/01/25 by MIAH Cabral norgest/e.estradiol-e.estrad 0.15 mg-30 mcg (84)/10 mcg (7) (Simpesse) PO lidocaine 5% 1 patch topical DAILY HPI HPI New prob-Lt knee swelling, decreased ROM: Details: 34 yo female with left knee pain she states the pain has been present for several years. She continuously feels a pop or a catching in her left knee and she needs to manipulate the leg to relieve the pressure. She has had no treatment to date. [facility] Surgical History (Updated 08/30/23 @ 11:12 by MARCELA Monson) Hx of breast augmentation Social History (Updated 04/01/25 @ 13:24 by Harmony Bush) Unable to assess alcohol history related to: Unknown Patient Tobacco Use Status: Current everyday Tobacco user Current occupational status: employed Current occupation: Dancer Review of Systems Const All systems reviewed & are unremarkable except as noted in HPI and below Physical Exam Vital Signs: BMI result Body Mass Index 27.5 Const General: cooperative and no acute distress Orientation/consciousness: patient oriented x3 Resp Effort & Inspection: normal respiratory effort and able to speak in complete sentences Cardio Peripheral pulses: Peripheral pulses 2+ throughout Neuro General: patient oriented x3 Extrem Other: Left knee is normal to inspection. She does have medial and lateral retropatellar tenderness. Full range of motion without crepitus. No ligamentous laxity. Negative Jermaine's. Neurovascularly intact. Results Reviewed Results Reviewed: X-rays of the left knee obtained on 01/05 are negative for any acute or chronic abnormalities. Assessment & Plan Assessment & Plan (1) Patellofemoral syndrome, left: Code(s): M22.2X2 - Patellofemoral disorders, left knee Category: Medical Plan: We discussed options today which includes physical therapy. The patient states she is unable to attend formal physical therapy but is interested in home exercises which I did provide her with today. I did supply her with a patellar stabilizing brace for the left knee which she can use with activities. She can use kjtm-dsd-abgjwyt anti-inflammatories for acute flare-ups as needed. If symptoms persist or worsen she can contact our office otherwise she will follow up as needed. Coding Level of Care Code Est Pt Level 3 (25504) Complex EM visit Add On G2211 Diagnoses Patellofemoral syndrome, left M22.2X2
[2025-04-01 13:25] VITALS: BMI 27.5
== END 2025-04-01 14:04 | disposition home or self-care (01) ==
LOC: HO.HOS 13:08
PROVIDERS: Visit Provider Physician Assistant
DX: M22.2X2 Patellofemoral disorders, left knee (principal)
CPT/HCPCS: 99213

== ENCOUNTER → 2025-04-01 13:08 | Outpatient (BNVA) | payer MEDICAID, SELFPAY | PROVIDERS: Visit Provider Physician Assistant | DX: M22.2X2 Patellofemoral disorders, left knee (principal) | CPT/HCPCS: 99212 ==

== ENCOUNTER 2025-08-26 14:10 | Outpatient (REF) | payer MEDICAID, SELFPAY ==
[2025-08-26 17:47] LABS: MANUAL DIFF FLAG NO
[2025-08-26 17:54] LABS: Appearance Urine Cloudy; Glucose Urine UA Negative (Negative); PH 6.0 (5.0-9.0); Specific Gravity - Urine 1.025 (1.005-1.025); UMIC TRIGGER UACC YES
[2025-08-26 18:01] LABS: Hematocrit 38.0 % (37.0-47.0); Hemoglobin 12.6 g/dl (12.0-16.0); Imm Gran Abs Auto 0.02 X10*3/uL (0.00-0.03); Imm Gran Pct Auto 0.3 % (0.0-0.4); Lymphocytes Absolute Auto 2.1 X10*3/uL (1.2-4.9); Mean Corpuscular HGB Conc 33.2 g/dl (31.0-35.0); Mean Corpuscular Hemoglobin 29.3 pg (27.0-33.0); Mean Corpuscular Volume 88.4 fL (80.0-98.0); NRBC Abs Auto 0.000 X10*3/uL (0.0-0.012); NRBC Pct Auto 0.0 /100WBC (0.0-0.2); Platelet Count 286 X10*3/uL (160-400); Red Blood Count 4.30 X10*6/uL (4.20-5.50); White Blood Count 6.4 X10*3/uL (4.8-10.8)
[2025-08-26 18:18] LABS: UACC Culture Trigger YES
[2025-08-26 18:33] LABS: Alanine Aminotransferase 13 U/L (0-31); Albumin Level 4.8 g/dL (3.5-5.0); Alkaline Phosphatase 65 U/L (39-117); Anion Gap 11 (12-20); Aspartate Amino Transferase 21 U/L (5-31); Blood Urea Nitrogen 9 mg/dL (9-16); Calcium 9.5 mg/dL (8.4-10.2); Carbon Dioxide 23 mmol/L (22-29); Chloride 109 mmol/L (96-108); Cholesterol 154 mg/dL (<200); Estimated Glomerular Filt Rate > 60; HDL Cholesterol 41 mg/dL (>40); Potassium 3.6 mmol/L (3.3-5.1); Sodium 139 mmol/L (135-145); Total Protein 7.4 g/dL (6.5-8.0); Triglycerides 84 mg/dL (<150)
[2025-08-27 05:46] LABS: HBS Num1 23.31 mIU/mL (0-7.99); HIV Num 1 0.11 S/CO (0.00-0.99); ~HepC Num1 0.08 S/CO (0.00-0.79); ~Hepatitis B Surface Antibody REACTIVE (Nonreactive); ~Hepatitis C Antibody Nonreactive (Nonreactive)
== END 2025-08-26 14:11 | disposition home or self-care (01) ==
LOC: HO.CHCLDS 14:10
PROVIDERS: Visit Provider Internal Medicine
DX: Z00.00 Encounter for general adult medical examination without abnormal findings (principal); Z11.4 Encounter for screening for human immunodeficiency virus [HIV]; Z11.59 Encounter for screening for other viral diseases; R82.90 Unspecified abnormal findings in urine
CPT/HCPCS: 36415; 80053; 80061; 81001; 84443; 85025; 86706; 86803; 87086; 87088; 87186; 87389